=== PATIENT | male | born 1945 | race Caucasian/White ===

== ENCOUNTER 2016-03-16 16:40 | Emergency (ER) | payer MEDICARE, OTHER ==
[2016-03-16] MEDS ORDERED: INSULIN REGULAR HUMAN 100 UNIT/1 ML 10 ML MDV SUBQ STA (17:25)
[2016-03-16] MEDS ORDERED: INSULIN REGULAR HUMAN 100 UNIT/1 ML 10 ML MDV ONE (17:28)
== END 2016-03-16 19:08 | disposition home or self-care (01) ==
DX: E11.65 Type 2 diabetes mellitus with hyperglycemia (principal); Z79.4 Long term (current) use of insulin; R42 Dizziness and giddiness; R41.0 Disorientation, unspecified; D72.829 Elevated white blood cell count, unspecified; I10 Essential (primary) hypertension; Z79.82 Long term (current) use of aspirin
CPT/HCPCS: 36415; 80053; 83690; 85025; 99283; 99284; J1815

== ENCOUNTER 2017-04-20 12:45 | Outpatient (CLI) | payer MEDICARE, OTHER ==
--- NOTE | 2017-04-20 17:45 | CT Report ---
CT BRAIN WITHOUT CONTRAST: 04/20/2017 CLINICAL INDICATION: Memory loss. TECHNIQUE: Axial CT images of the brain were obtained without intravenous contrast. In accordance with CT protocol optimization, one or more of the following dose reduction techniques were utilized for this exam: Automated exposure control, adjustment of mA and/or KV based on patient size, or use of iterative reconstructive technique. No previous CT is available for comparison. FINDINGS: The ventricles and sulci demonstrate moderate symmetric enlargement, compatible with atrophy. The basilar cisterns are patent. There is no evidence of hemorrhage, mass effect, or midline shift. The visualized orbital contents and paranasal sinuses are unremarkable. IMPRESSION: ATROPHY. NO EVIDENCE OF HEMORRHAGE OR MASS EFFECT. TD: 04/20/2017 17:44
== END 2017-04-20 12:46 | disposition home or self-care (01) ==
LOC: DI 12:45
PROVIDERS: ATTEND Internal Medicine
DX: R41.3 Other amnesia (principal); G31.9 Degenerative disease of nervous system, unspecified
CPT/HCPCS: 70450

== ENCOUNTER 2017-07-17 14:44 | Outpatient (CLI) | payer MEDICARE, OTHER ==
--- NOTE | 2017-07-18 12:12 | Ultrasound Report ---
RETROPERITONEAL ULTRASOUND: 07/17/2017 HISTORY: Proteinuria, chronic renal disease. TECHNIQUE: Real-time scanning by the management expert with saved static images reviewed. COMPARISON: No comparisons. FINDINGS: Right kidney: 11.2 x 6.1 x 6.5 cm. Lateral mid pole cyst 2.9 x 2.4 x 2.7 cm. No solid mass, stone, or obstruction. Left kidney: 11.1 x 5.8 x 5.1 cm. Medial superior pole cyst 1.7 x 1.6 x 2 cm. No solid mass, stone, or obstruction. A left ureteral jet is present. The right is not seen. Prevoid bladder volume 530 mL. Postvoid residual volume 162 mL. IMPRESSION: SOLITARY SIMPLE CYST IN EACH KIDNEY. NO RENAL STONES OR OBSTRUCTION. MODERATE POSTVOID RESIDUAL URINARY VOLUME. TD: 07/18/2017 12:08
== END 2017-07-17 14:45 | disposition home or self-care (01) ==
LOC: DI 14:44
PROVIDERS: ATTEND Internal Medicine Nephrology
DX: N18.3 Chronic kidney disease, stage 3 (moderate) (principal); R80.9 Proteinuria, unspecified; Q61.01 Congenital single renal cyst
CPT/HCPCS: 76770

== ENCOUNTER 2017-07-28 08:34 | Outpatient (CLI) | payer MEDICARE, OTHER ==
[2017-07-28 11:41] LABS: CALCIUM 9.2 mg/dL (8.5-10.3)
== END 2017-07-28 08:35 | disposition home or self-care (01) ==
LOC: LAB.F 08:34
PROVIDERS: ATTEND Student in an Organized Health Care Education/Training Program
DX: N05.9 Unspecified nephritic syndrome with unspecified morphologic changes (principal); N18.3 Chronic kidney disease, stage 3 (moderate); D47.2 Monoclonal gammopathy
CPT/HCPCS: 36415; 80048

== ENCOUNTER 2017-07-31 08:00 | Outpatient (CLI) | payer MEDICARE, OTHER ==
[2017-07-31 11:10] LABS: TOTAL PROTEIN 24HR,URINE 1925 mg/24hr (40-150); TOTAL PROTEIN,URINE TIMED 55 mg/dL; TOTAL VOLUME 24HRS,URINE 3500 mL
== END 2017-07-31 08:01 | disposition home or self-care (01) ==
LOC: LAB.R 08:00
PROVIDERS: ATTEND Student in an Organized Health Care Education/Training Program
DX: N05.9 Unspecified nephritic syndrome with unspecified morphologic changes (principal); N18.3 Chronic kidney disease, stage 3 (moderate); D47.2 Monoclonal gammopathy
CPT/HCPCS: 81599; 82570; 84156; 84166; 86335

== ENCOUNTER 2017-08-31 08:45 | Outpatient (CLI) | payer MEDICARE, OTHER ==
[2017-08-31 18:25] LABS: HB2 TOTAL 15.4 g/dL; HEMOGLOBIN A1C 1.09 g/dL; HEMOGLOBIN A1C % 8.6 % (4.6-6.2)
[2017-08-31 18:26] LABS: ALBUMIN 3.9 g/dL (3.2-5.5); ALBUMIN/GLOBULIN RATIO 1.2 (1.0-2.2); BILIRUBIN,TOTAL 0.8 mg/dL (0.2-1.0); CALCIUM 9.2 mg/dL (8.5-10.3); CREATININE 0.9 mg/dL (0.6-1.2); TOTAL PROTEIN 7.1 g/dL (6.7-8.2)
== END 2017-08-31 08:46 | disposition home or self-care (01) ==
LOC: LAB.F 08:45
PROVIDERS: ATTEND Physician Assistant
DX: I12.9 Hypertensive chronic kidney disease with stage 1 through stage 4 chronic kidney disease, or unspecified chronic kidney disease (principal); E11.22 Type 2 diabetes mellitus with diabetic chronic kidney disease; N18.9 Chronic kidney disease, unspecified; E11.65 Type 2 diabetes mellitus with hyperglycemia; Z12.5 Encounter for screening for malignant neoplasm of prostate
CPT/HCPCS: 36415; 80053; 83036; 84443; G0103; 84153

== ENCOUNTER 2017-09-13 14:30 | Outpatient (CLI) | payer MEDICARE, OTHER ==
--- NOTE | 2017-09-14 09:32 | Ultrasound Report ---
Procedure Date: 09/13/2017 Accession Number: [id number] / [id number] Procedure: US - Duplex Ext Veins Bilateral CPT Code: FULL RESULT: EXAM: BILATERAL LOWER EXTREMITY VENOUS ULTRASOUND EXAM DATE: 09/13/2017 03:48 PM. CLINICAL HISTORY: Leg pain, HTN, DM, obesity. COMPARISON: 10/01/2015. TECHNIQUE: Real-time sonographic vascular imaging was performed by the iv technician through the lower extremities utilizing both color-flow and Doppler spectral analysis. Multiple shipping services sales representative static images were saved for review. FINDINGS: Right: Common Femoral Vein (CFV): Normal. CFV-GSV Junction: Normal. Profunda Femoral Vein (PFV): Normal. Femoral Vein (FV) Prox: Normal. Femoral Vein (FV) Mid: Normal. Femoral Vein (FV) Dist: Normal. Popliteal Vein: Normal. Posterior Tibial Veins: Normal. Peroneal Veins: Normal. Left: Common Femoral Vein (CFV): Normal. CFV-GSV Junction: Normal. Profunda Femoral Vein (PFV): Normal. Femoral Vein (FV) Prox: Normal. Femoral Vein (FV) Mid: Normal. Femoral Vein (FV) Dist: Normal. Popliteal Vein: Normal. Posterior Tibial Veins: Normal. Peroneal Veins: Normal. Other: None. IMPRESSION: No evidence for deep venous thrombosis bilaterally. RADIA
--- NOTE | 2017-09-14 14:37 | Ultrasound Report ---
Procedure Date: 09/13/2017 Accession Number: [id number] / [id number] Procedure: US - Duplex Lwr Ext Arterial Bilat CPT Code: FULL RESULT: EXAM: Bilateral Lower Extremity Arterial Doppler Ultrasound EXAM DATE: 09/13/2017 03:47 PM. CLINICAL HISTORY: Leg pain, HTN, DM, obesity. COMPARISON: None. TECHNIQUE: Real-time sonographic vascular imaging was performed by the assurance assistant, utilizing color-flow, Doppler flow, and spectral analysis. Multiple account executive sales representative static images were saved for review. FINDINGS: On the right, all the vessels demonstrate biphasic waveforms without focal areas of spectral broadening or abnormal waveforms or elevated velocities. Grayscale imaging confirms atheromatous calcified plaques throughout the right leg. On the left, decrease velocities are present extending from the left common femoral artery to the ankle. Atheromatous plaques are noted throughout the left leg arterial system. All the waveforms are diffusely abnormal and are monophasic. However, no focal stenosis, dissection or aneurysm is noted in the arterial system of the left leg. Spectral waveform analysis is as follows: Right Leg: APPLICATION INTERNSHIP: PSV 133 cm/sec. Biphasic waveform. PSFA: PSV 131 cm/sec. Biphasic waveform. MSFA: PSV 82 cm/sec. Biphasic waveform. DSFA: PSV 71 cm/sec. Biphasic waveform. PFA: PSV 79 cm/sec. Biphasic waveform. POP: PSV 54 cm/sec. Biphasic waveform. JOSE F: PSV 39 cm/sec. Biphasic waveform. ANIMAL CARE TECHNICIAN: PSV 49 cm/sec. Biphasic waveform. PER: PSV 25 cm/sec. Biphasic waveform. DPA: PSV 41 cm/sec. Biphasic waveform. Left Leg: APPLICATION INTERNSHIP: PSV 34 cm/sec. Monophasic waveform. PSFA: PSV 46 cm/sec. Monophasic waveform. MSFA: PSV 37 cm/sec. Monophasic waveform. DSFA: PSV 20 cm/sec. Monophasic waveform. PFA: PSV 19 cm/sec. Monophasic waveform. POP: PSV 19 cm/sec. Monophasic waveform. JOSE F: PSV 9 cm/sec. Monophasic waveform. ANIMAL CARE TECHNICIAN: PSV 23 cm/sec. Monophasic waveform. PER: PSV 10 cm/sec. Monophasic waveform. DPA: PSV 11 cm/sec. Monophasic waveform. IMPRESSION: 1. All of the vessels of the right leg from the right common femoral artery to the ankle demonstrate biphasic waveforms. No hemodynamically significant focal stenosis, dissection or aneurysm of the right leg arteries is noted. 2. Diffusely abnormal monophasic waveforms throughout the left leg from the left common femoral artery to the ankle with overall decreased velocities. No focal hemodynamically significant stenosis is noted in the imaged vessels. However, the diffusely abnormal waveforms suggest a more central abnormality possibly in the left external iliac artery or common iliac arteries. Findings can be confirmed with CT angiogram with runoff as necessary. RADIA
== END 2017-09-13 14:31 | disposition home or self-care (01) ==
LOC: DI 14:30
PROVIDERS: ATTEND Physician Assistant
DX: R93.6 Abnormal findings on diagnostic imaging of limbs (principal); M79.604 Pain in right leg; I10 Essential (primary) hypertension; E11.9 Type 2 diabetes mellitus without complications
CPT/HCPCS: 93925; 93970

== ENCOUNTER 2017-09-21 10:49 | Outpatient (CLI) | payer MEDICARE, OTHER ==
[2017-09-21] MEDS ORDERED: IOPAMIDOL-300 100 ML VIAL IVP ONE (13:03)
--- NOTE | 2017-09-21 14:25 | CT Report ---
Procedure Date: 09/21/2017 Accession Number: [id number] / [id number] Procedure: CT - Angio Aorta w/Runoff CPT Code: FULL RESULT: EXAM: CT ANGIOGRAM ABDOMEN AND PELVIS, WITH BILATERAL LOWER EXTREMITY ARTERY RUNOFF EXAM DATE: 09/21/2017 11:52 AM CLINICAL HISTORY: LEFT LEG PAIN,ABNORMAL ARTERIAL US,HTN. COMPARISON: None. TECHNIQUE: Routine helical imaging was performed through the abdomen, pelvis and bilateral lower extremities in arterial phase. IV Contrast: ISOVUE 300 125mL. Reconstructions: Coronal, sagittal, and 3D MIP reconstructions were performed. In accordance with CT protocol optimization, one or more of the following dose reduction techniques were utilized for this exam: automated exposure control, adjustment of mA and/or KV based on patient size, or use of iterative reconstructive technique. FINDINGS: Vascular: Severe wall calcifications in the abdominal aorta with no aneurysmal dilatation or dissection. The celiac trunk, SMA and renal arteries appear patent. The ANGELICA is opacified. Continuing on the right, severe stenosis secondary to calcified plaque in the proximal right common iliac artery (series 5, image 1:30). Moderate to severe stenosis in the mid right external iliac artery secondary to calcified plaque. Prominent wall calcification with effacement of the common femoral artery lumen by approximately 50% (series 5, image 212). Prominent wall calcification in the distal superficial femoral artery with approximate 50% stenosis (series 5, image 346). The popliteal artery is patent. The anterior tibial, posterior tibial and peroneal arteries are opacified down to level of the ankle. Continuing on the left, there is occlusion of the left common iliac artery at its origin. There is reconstitution of the proximal left internal iliac artery and distal aspect of the left external iliac artery. The common femoral, superficial femoral and popliteal arteries are patent. The deep posterior tibial arteries opacified down to the level of the ankle. The anterior tibial and peroneal arteries are opacified down to the level of the ankle. The peroneal vein is opacified to the level of the distal calf. Abdomen: Lung bases, abdominal solid organs, unremarkable for arterial phase enhancement. There is a 2.0 x 1.7 cm soft tissue mass extending off of the superior lateral aspect of the proximal stomach (series 13, image 30) and (series 5, image 40). Diverticulosis without diverticulitis. There is a nodular density in the left adrenal gland measuring up to 2.2 x 1.6 cm and 52 Hounsfield units (series 5, image 64). This is indeterminate. There is a second nodular density posterior aspect of the left adrenal gland measuring up to 1.4 x 1.0 cm and 37 Hounsfield units, also indeterminate. There is a nodular density in the right adrenal gland posteriorly measuring 1.1 x 1.0 cm and 50 Hounsfield units. This is indeterminate. Bilateral renal cysts measuring up to 3.3 cm on the right appear simple in nature. No hydronephrosis or renal calculus. Abdominal contents otherwise normal. There is an expansile heterogeneously enhancing mass in the posterior aspect of the spinous process of L2 measuring 3.7 x 2.8 cm (series 9, image 64). Pelvis: Pelvic organs, bowel, and bladder unremarkable for arterial phase enhancement. Pelvic contents otherwise normal. Extremities: Lower extremity bones and soft tissues unremarkable. No significant degenerative changes. IMPRESSION: 1. Severe atherosclerotic disease of the abdominal aorta with no aneurysmal dilatation or dissection.. 2. 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 3. The left posterior tibial artery is opacified down to level of the ankle. The left anterior tibial and peroneal arteries are opacified down to the level of the mid calf. 4. There is an expansile lytic lesion in the spinous process of L2 measuring 3.7 x 2.8 cm. Consider lumbar spine MRI with contrast for further evaluation of this finding as this is concerning for neoplasm. 5. Bilateral indeterminate adrenal lesions, as above. Three-phase renal CT or renal MRI may be of benefit to further characterize these lesions. 6. There is a soft tissue mass extending superior laterally off of the proximal stomach measuring 2.0 x 1.7 cm concerning for neoplasm. Findings discussed immediately with Dr. Morris by phone on 09/21/2017 at 2:21 PM The above findings were discussed with Carin Morris by Dr. Liliana Ruano at 14:24 hrs on 09/21/17.
== END 2017-09-21 10:50 | disposition home or self-care (01) ==
LOC: DI 10:49
PROVIDERS: ATTEND Physician Assistant
DX: M79.605 Pain in left leg (principal); I74.5 Embolism and thrombosis of iliac artery; I70.0 Atherosclerosis of aorta; M51.86 Other intervertebral disc disorders, lumbar region; R19.09 Other intra-abdominal and pelvic swelling, mass and lump; I10 Essential (primary) hypertension; E11.9 Type 2 diabetes mellitus without complications; E78.5 Hyperlipidemia, unspecified
CPT/HCPCS: 75635; Q9967

== ENCOUNTER 2017-11-22 17:38 | Emergency (ER) | payer MEDICARE, OTHER ==
--- NOTE | 2017-11-22 19:37 | ED Physician Documentation ---
History of Present Illness - Stated complaint Stated Complaint: TOO MUCH INSULIN - Chief complaint Chief Complaint: General - History obtained from History obtained from: Patient, Family - History of Present Illness Timing: Today (72-year-old gentleman with mild dementia takes his own insulin, 35 units of Lantus in the morning and the evening. He had forgotten he took it and around 4:00 took a second dose of his evening insulin. He feels fine.) Review of Systems Ten Systems: 10 systems reviewed and negative Constitutional: denies: Fever, Chills Skin: reports: Reviewed and negative PD PAST MEDICAL HISTORY - Past Medical History Cardiovascular: Hypertension, High cholesterol Endocrine/Autoimmune: Type 2 diabetes Musculoskeletal: Chronic back pain - Past Surgical History Past Surgical History: Yes - Present Medications Home Medications: Ambulatory Orders Medication Instructions Recorded Confirmed Aspirin [Aspir-Low] 81 mg PO DAILY 03/16/16 04/26/16 Atorvastatin [Lipitor] 20 mg PO DAILY 03/16/16 04/26/16 Enalapril [Vasotec] 20 mg PO DAILY 03/16/16 04/26/16 Insulin Glargine [Lantus] 30 units SQ BID 03/16/16 04/26/16 Metoprolol Succinate 50 mg PO DAILY 03/16/16 04/26/16 amLODIPine [Norvasc] 10 mg PO DAILY 03/16/16 04/26/16 Ascorbic Acid [Vitamin C] 1,000 mg PO DAILY 04/26/16 04/26/16 Cholecalciferol (Vitamin D3) 1,000 unit PO DAILY 04/26/16 04/26/16 [Vitamin D3] [place]-3/Dha/Epa/Fish Oil [Fish Oil 1 each PO DAILY 04/26/16 04/26/16 1,000 mg Softgel] Triamterene/Hydrochlorothiazid 1 each PO DAILY 04/26/16 04/26/16 [Triamterene-Hctz 75-50 mg Tab] - Allergies Allergies/Adverse Reactions: Allergies Allergy/AdvReac Type Severity Reaction Status Date / Time Penicillins Allergy Unknown Verified 11/22/17 17:46 metformin AdvReac severe Verified 11/22/17 17:46 diarrhea - Social History Does the pt smoke?: No Smoking Status: Former smoker Does the pt drink ETOH?: No Does the pt have substance abuse?: No PD ED PE NORMAL - Vitals Vital signs reviewed: Yes - General General: Alert and oriented X 3, No acute distress - Neuro Neuro: Alert and oriented X 3, Normal speech - Psych Psych: Normal mood, Normal affect Results - Vitals Vitals: Vital Signs - 24 hr 11/22/17 11/22/17 17:40 19:28 Temperature 36.2 C L 36.8 C Heart Rate 105 H 96 Respiratory 20 16 Rate Blood Pressure 159/73 H 159/57 H O2 Saturation 94 95 Oxygen O2 Source Room air - Labs Labs: Laboratory Tests 11/22/17 11/22/17 11/22/17 17:46 18:29 19:25 POC Whole Bld Glucose 176 H 171 H 201 H PD MEDICAL DECISION MAKING - ED course ED course: He was watched for several hours and there is no evidence of hypoglycemia on recurrent checks. - Sepsis Event Vital Signs: Vital Signs - 24 hr 11/22/17 11/22/17 17:40 19:28 Temperature 36.2 C L 36.8 C Heart Rate 105 H 96 Respiratory 20 16 Rate Blood Pressure 159/73 H 159/57 H O2 Saturation 94 95 Oxygen O2 Source Room air Departure - Departure Disposition: 01 Home, Self Care Clinical Impression: Overdose of insulin Qualifiers: Encounter type: initial encounter Injury intent: accidental or unintentional Qualified Code(s): T38.3X1A - Poisoning by insulin and oral hypoglycemic [antidiabetic] drugs, accidental (unintentional), initial encounter Condition: Good Record reviewed to determine appropriate education?: Yes Instructions: ED Overdose Accidental Comments: Try to figure out some sort of systems so that this does not happen again.
[2017-11-22 21:11] VITALS: BP 153/60
== END 2017-11-22 21:11 | disposition home or self-care (01) ==
LOC: ED 17:38
DX: T38.3X1A Poisoning by insulin and oral hypoglycemic [antidiabetic] drugs, accidental (unintentional), initial encounter (principal); F03.90 Unspecified dementia, unspecified severity, without behavioral disturbance, psychotic disturbance, mood disturbance, and anxiety; I10 Essential (primary) hypertension; E11.9 Type 2 diabetes mellitus without complications; Z87.891 Personal history of nicotine dependence; Z79.82 Long term (current) use of aspirin; Z79.4 Long term (current) use of insulin
CPT/HCPCS: 99283

== ENCOUNTER 2017-11-25 08:49 | Outpatient (CLI) | payer MEDICARE, OTHER ==
--- NOTE | 2017-11-26 01:02 | CT Report ---
Reason: DECREASE MEMORY LOSS, VENAL CELL CANCER Procedure Date: 11/25/2017 Accession Number: [id number] / [id number] Procedure: CT - Head W/O CPT Code: FULL RESULT: EXAM: CT HEAD WITHOUT CONTRAST COMPARISON: 04/20/2017. CLINICAL HISTORY: Decreased memory loss, renal cell cancer. TECHNIQUE: Axial CT images were obtained from the foramen magnum to the vertex without contrast In accordance with CT protocol optimization, one or more of the following dose reduction techniques were utilized for this exam: automated exposure control, adjustment of mA and/or KV based on patient size, or use of iterative reconstructive technique. FINDINGS: No intracranial hemorrhage. No masses. Ventricles are prominent, as before. Mastoids are clear. No middle ear effusions. Rightward deviation of the bony nasal septum is noted, clinical correlation with decreased right-sided nasal airflow suggested. Temporomandibular joints are normally located. Zygomatic arches are intact. Hippocampi are atrophic, as before. Clinical correlation with memory difficulty suggest. Bifrontal volume loss is noted. IMPRESSION: No intracranial hemorrhage, masses, or other discrete acute process identified. Hippocampal volume loss is noted, clinical correlation with memory difficulty suggested. Bifrontal atrophy is noted.
== END 2017-11-25 08:50 | disposition home or self-care (01) ==
LOC: DI 08:49
PROVIDERS: ATTEND Physician Assistant
DX: R41.3 Other amnesia (principal); G31.9 Degenerative disease of nervous system, unspecified; C64.9 Malignant neoplasm of unspecified kidney, except renal pelvis
CPT/HCPCS: 70450

== ENCOUNTER 2017-11-28 11:27 | Inpatient (IN) | payer MEDICARE, OTHER ==
[2017-11-28] MEDS ORDERED: SODIUM CHLORIDE 0.9% 1,000 ML IV ONE (12:19)
[2017-11-28 12:42] LABS: BASOPHILS % (AUTO) 0.3 %; EOSINOPHILS # (AUTO) 0.1 10^3/uL (0.0-0.7); EOSINOPHILS % (AUTO) 0.6 %; HGB - HEMOGLOBIN 12.7 g/dL (14.0-18.0); LYMPHOCYTES # (AUTO) 1.2 10^3/uL (1.5-3.5); LYMPHOCYTES % (AUTO) 9.3 %; MEAN CORPUSCULAR HEMOGLOBIN 27.4 pg (27.0-31.0); MEAN CORPUSCULAR HGB CONC 34.7 g/dL (32.0-36.0); MEAN PLATELET VOLUME 7.6 fL (7.4-11.4); MONOCYTES # (AUTO) 0.9 10^3/uL (0.0-1.0); MONOCYTES % (AUTO) 6.6 %; NEUTROPHILS # (AUTO) 10.8 10^3/uL (1.5-6.6); NEUTROPHILS % (AUTO) 83.2 %; PLT - PLATELET COUNT 245 10^3/uL (130-450); RED BLOOD COUNT 4.64 10^6/uL (4.70-6.10); RED CELL DISTRIBUTION WIDTH 14.9 % (12.0-15.0)
[2017-11-28 12:54] LABS: CREATININE 0.9 mg/dL (0.6-1.2)
[2017-11-28 13:34] LABS: CALCIUM 9.3 mg/dL (8.5-10.3)
--- NOTE | 2017-11-28 13:58 | ED Physician Documentation ---
History of Present Illness - Stated complaint Stated Complaint: BOCHY ACHES, HEAD CONGESTION - Chief complaint Chief Complaint: General - Additonal information Additional information: hx from pt, family, PMD 73 male Pmhx DM, HTN, HLD, PVD, dementia recently found to have an L2 lytic lesion and biopsy showed it to be metastatic renal cell carcinoma [facility] over last week or so very agitated, unable to sleep, almost violetn, pulled a door off its hinges and knowcked his down tried xanax but that only made him more agitated and tried vicodin but that made him fall (no injury per ) he has had CTH already due to ongoing SHORE for quite some time (per showed changes c/w dementia not cancer) no reported fever cough NVD does urinate every 2 minutes which is part of the reason he cannot sleep per paperwork Pmhx: HTN T2DM HLD dementia CKD meds : enalapril, VitC, MVI, asa, vit D3, insulin, trimaterene HCTZ, atorvastati, doxazosin, norco All: penicillin an dmetformin Review of Systems Constitutional: denies: Fever Cardiac: denies: Chest pain / pressure Respiratory: denies: Dyspnea, Cough GI: denies: Abdominal Pain, Nausea, Vomiting : reports: Frequency Neurologic: reports: Confused, Altered mental status, Headache. 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 - Past Surgical History Past Surgical History: Yes - Present Medications Home Medications: Ambulatory Orders Medication Instructions Recorded Confirmed Aspirin [Aspir-Low] 81 mg PO DAILY 03/16/16 04/26/16 Atorvastatin [Lipitor] 20 mg PO DAILY 03/16/16 04/26/16 Enalapril [Vasotec] 20 mg PO DAILY 03/16/16 04/26/16 Insulin Glargine [Lantus] 30 units SQ BID 03/16/16 04/26/16 Metoprolol Succinate 50 mg PO DAILY 03/16/16 04/26/16 amLODIPine [Norvasc] 10 mg PO DAILY 03/16/16 04/26/16 Ascorbic Acid [Vitamin C] 1,000 mg PO DAILY 04/26/16 04/26/16 Cholecalciferol (Vitamin D3) 1,000 unit PO DAILY 04/26/16 04/26/16 [Vitamin D3] [place]-3/Dha/Epa/Fish Oil [Fish Oil 1 each PO DAILY 04/26/16 04/26/16 1,000 mg Softgel] Triamterene/Hydrochlorothiazid 1 each PO DAILY 04/26/16 04/26/16 [Triamterene-Hctz 75-50 mg Tab] - Allergies Allergies/Adverse Reactions: Allergies Allergy/AdvReac Type Severity Reaction Status Date / Time Penicillins Allergy Unknown Verified 11/28/17 11:51 metformin AdvReac severe Verified 11/28/17 11:51 diarrhea - Social History Does the pt smoke?: No Smoking Status: Never smoker Does the pt drink ETOH?: No Does the pt have substance abuse?: No - Immunizations Immunizations are current?: Yes Results - Vitals Vitals: Vital Signs - 24 hr 11/28/17 11:47 Temperature 36.2 C L Heart Rate 68 Respiratory 16 Rate Blood Pressure 182/77 H O2 Saturation 99 Oxygen O2 Source Room air - Labs Labs: Laboratory Tests 11/28/17 11/28/17 12:37 12:37 WBC 13.0 H RBC 4.64 L Hgb 12.7 L Hct 36.7 L MCV 79.0 L MCH 27.4 MCHC 34.7 RDW 14.9 Plt Count 245 MPV 7.6 Neut # (Auto) 10.8 H Lymph # (Auto) 1.2 L Cotton # (Auto) 0.9 Eos # (Auto) 0.1 Baso # (Auto) 0.0 Absolute Nucleated RBC 0.00 Nucleated RBC % 0.0 Sodium 114 L* Potassium 4.7 Chloride 80 L* Carbon Dioxide 22 Anion Gap 12.0 BUN 27 H Creatinine 0.9 Estimated GFR (MDRD) 82 L Glucose 161 H Calcium 9.3 PD MEDICAL DECISION MAKING - ED course ED course: profound hyponatremia will need admit spoke to hospitalist at 1400 she will admit pt for further work up and care defer urine na, chest imaging etc to inpt team Departure - Departure Disposition: 66 [facility] DC/Xfer Clinical Impression: Hyponatremia, Mental confusion
[2017-11-28] MEDS ORDERED: ONDANSETRON 4 MG/2 ML VIAL IVP PRN (14:04)
[2017-11-28] MEDS ORDERED: PROCHLORPERAZINE 10 MG/2 ML VIAL IVP PRN (14:04)
[2017-11-28] MEDS ORDERED: ONDANSETRON ODT 4 MG TABLET TL PRN (14:04)
[2017-11-28] MEDS ORDERED: oxyCODONE 5 MG TABLET PO PRN (14:04)
[2017-11-28 15:23] LABS: BILIRUBIN,URINE NEGATIVE (NEGATIVE); GLUCOSE, URINE (UA) NEGATIVE (NEGATIVE); KETONES,URINE (UA) NEGATIVE (NEGATIVE); LEUKOCYTE ESTERASE, URINE NEGATIVE (NEGATIVE); NITRITE,URINE NEGATIVE (NEGATIVE); OCCULT BLOOD,URINE SMALL (NEGATIVE); PROTEIN,URINE 100 mg/dL (NEGATIVE); UROBILINOGEN,URINE 0.2 (NORMAL) E.U./dL (NORMAL)
[2017-11-28 15:26] LABS: CLARITY,URINE CLEAR (CLEAR)
[2017-11-28 15:33] LABS: BACTERIA,URINE None Seen /HPF (None Seen); RBC,URINE 0-5 /HPF (0-5); SQUAMOUS EPITHELIAL CELL,UR NONE SEEN (<= Few)
[2017-11-28] MEDS: HALOPERIDOL 5 MG/ML VIAL IVP PRN ×3 (17:35→23:07)
[2017-11-28] MEDS: SODIUM CHLORIDE 0.9% 1,000 ML IV SCH ×2 (17:35→23:40)
[2017-11-28] MEDS: SODIUM CHLORIDE FLUSH 0.9% 10 ML SYRINGE IVP SCH ×2 (17:35→23:56)
[2017-11-28 18:08] LABS: CALCIUM 8.3 mg/dL (8.5-10.3); CREATININE 0.8 mg/dL (0.6-1.2)
[2017-11-28] MEDS ORDERED: SODIUM CHLORIDE 3% HYPERTONIC 500 ML IV SCH (19:00)
--- NOTE | 2017-11-28 19:55 | HISTORY & PHYSICAL EXAMINATION ---
DATE OF SERVICE: 11/28/2017 Physician: Nohemi Mccoy MD PRIMARY CARE PROVIDER: EVI Gaitan. ADMITTING PROVIDER: Nohemi Mccoy MD. CHIEF COMPLAINT: Agitation and confusion. HISTORY OF PRESENT ILLNESS: The patient is a 72-year-old, white male who has been having more and more agitation, confusion, memory loss that sharply deteriorated after an L2 biopsy on 10/25/2017. He is a morbidly obese gentleman that is followed by his primary care provider for hypertension, hyperlipidemia, diabetes, and reflux disease. He has been having chronic back pain for probably 2 years. In association with the back pain, there has been leg pain. You can see in the EMR where, in September 2015, he was evaluated by Mely Souza. Hip and pelvic films were negative, other than for degenerative joint disease. A venous Doppler was done 10/01/2015, and was negative. With memory loss, he had a April [address] that was also negative. Because of the bitter complaint of left leg pain and inability to ambulate, the differential diagnosis shifted from a degenerative joint disease to a vascular disease because of his comorbidities. He underwent an arteriogram 09/21/2017. With that 09/21/2017 arteriogram, he did definitely have severe atherosclerotic disease of the abdominal aorta with no aneurysm, complete occlusion of the left common iliac artery with reconstitution of the distal left internal iliac and distal external iliac, but what was new was an expansile lytic lesion in the spinous process of L2, measuring 3.7 x 2.8 cm. He had bilateral indeterminate adrenal lesions. He had a soft tissue mass extending superolaterally off the proximal stomach, measuring 2 x 1.7 cm, concerning for neoplasm. Since then, he has gone on to have further evaluation and had an L2 biopsy 10/25/2017. 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 The family states that, since the biopsy, he has been deteriorating with regard to mentation, agitation, and a sense of panic with impending doom. It was getting steadily worse. The was even concerned about memory loss getting worse from the April 2017 evaluation. Over the last 2-3 nights, he has been up and down continuously. He feels like he has got to urinate. He lies down and, 30 seconds later, is getting back up again in an attempt to pee. He has been up and down so much that the family is now exhausted. He is starting to get belligerent and even yanked a door off of its hinges. The and son are with the patient. The patient is alert enough to endorse their answers to my questions. He does have problems with his eyes and gets a regular diabetic check, but he denies any cardiopulmonary problems. He usually does not have shortness of breath, coughing, wheezing. He has had no change in bowel habits. Stool is the same as it has always been with no change in its color. The main change, over the last year, has been memory loss, and in the last month, it has been urgency, frequency, urinary retention, agitation, memory loss. He tells me that, "I just can't describe it. I just feel like something bad's gonna happen," and he gets very, very agitated and scared and just has to sit up. While he tells me that he cannot pee, he does not feel like that it is what is making him try and get up. He has had almost no appetite. He had half a banana today. Over the last few days, he has just nibbled here and there at various food that has been offered to him. He has not had any syncope or seizures. He was brought to the emergency room by his . He is found to have a sodium of 114 with a potassium 4.7, BUN 27, creatinine 0.9. Random glucose 161. White cell count was 13 with hemoglobin 12.7. Platelets 245. An in-and-out straight catheter shows 755 mL of urine in the bladder with proteinuria, small amount of hematuria, but no infection. CT of the head in the emergency room was also negative. He has some nasal septal deviation. The patient does endorse having "a stuffed up head with lots of pressure." The almost is tearful and desperate in her anxiety. She says that there is no way he can undergo therapy for this tumor, not with this level of agitation. He has an appointment with [facility] 12/07/2017. PAST MEDICAL HISTORY 1. Hypertension. 2. Hyperlipidemia. 3. Gastroesophageal reflux disease. 4. Type 2 diabetes mellitus, with complications, not on long-term insulin since 2008, per his previous PCP notes. 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 He is on long-term use of Lantus. He also has proteinuria and chronic kidney disease. Creatinine is 0.9 in January 2009 and is 0.8 today. GFR is 82-94. 5. Morbid obesity. 6. Lipoma of right thigh removed September 2016. ALLERGIES 1. PENICILLIN 2. METFORMIN. SOCIAL HISTORY: He started smoking at the age of 11. He gave it up in 1995 after a 0-xfpo-fac-day habit. He used to drink quite heavily and drank probably two 6 packs a day, but quit in 1979, when he was dating his . She is his first , and they have 1 son together. She was previously , and he has 2 stepdaughters with her. He was born in [place], [place], spent most of his formative years in the [employer], and was also working for [employer], using heat-treated aluminum and steel. He had a lot of environmental exposures because of that and never wore a mask. FAMILY HISTORY: Mom in her 80s of encephalitis of some unknown type. She was bedr[place] in a [place] [facility]. Dad at age 80 of a stroke. He had 1 brother, 1 sister, but both of them immediately after from Rh factor disease 1 son who is overweight, but otherwise healthy. FUNCTIONAL STATUS: Although his leg has hurt him on the left side, he has been ambulatory. Fed himself, dressed himself. Was alert and oriented. He did not use a cane or a walker. He is still ambulatory, but his confusion leaves him unable to be supervised for even a few minutes at a time. REVIEW OF SYSTEMS: Per the and the patient and the son, on general review of systems, he has no fever, no chills, no sweats, no unexpected weight changes in spite of his recent illness. ENT: Retinal hemorrhage, resulted in some loss of vision, but he does not have glaucoma or cataracts. He denies dysphagia or dysarthria. No facial dysesthesias. Mild deafness. PULMONARY: Denies coughing, wheezing, shortness of breath, phlegm production. CARDIAC: Denies chest pain, orthopnea, edema. Denies palpitations or history of irregular heart rate or murmurs. GASTROINTESTINAL: Decreased appetite over the last month. Decreased p.o. intake. No change in bowel habits. Dyspepsia is intermittent and the same as always. GENITOURINARY: Urgency, frequency, decreased stream, retention have all been present. He has had intermittent left flank pain for the last 3 months. It is interesting to note that a retroperitoneal ultrasound from July of this year showed bilateral simple cysts. From July to September, there have been tremendous changes in his anatomy from that simple ultrasound to the aortogram is done in September. MUSCULOSKELETAL: Joints have been the pain of his assistance ever since he retired. He has chronic back pain with left anterior thigh numbness, left sciatic pain in the past. Knees hurt him. Hips hurt him. Neck hurts him. In the last few weeks, chronic unremitting left-sided lumbar back pain has been newly present. SKIN: Denies any rashes, skin discoloration, moles. PSYCHIATRIC: Severe new anxiety. says this is a totally different person since his biopsy 10/25/2017. It is almost as if he is a different man. There is a lot of anxiety, agitation, sharp memory loss. He says he is just really scared. He denies suicidal ideation or hallucinations. ENDOCRINE: Denies heat or cold intolerance. Denies polyuria, polydipsia, polyphagia. CENTRAL NERVOUS SYSTEM: No history of seizures. Memory loss is positive. No history of focal deficits. Left leg has been intermittently painful and occasionally left stronger than the right leg that they felt was from sciatica. Denies peripheral neuropathy. PHYSICAL EXAMINATION GENERAL: He is seen in his room with his son, stepdaughter, and at the bedside. VITAL SIGNS: Temperature is 36.6. Pulse is 95 and regular. Blood pressure 185/72. Respirations 16. Oxygen saturations 97% on room air. BEHAVIOR: He said that he was feeling better than when he was in the emergency room, but as I spent an hour to an hour and a half in the room with him, he began escalating with increasing getting up and down from the bed. He was getting up to go urinate, have no result, lie back down, and 45 seconds to a minute later try and get up again. At some points, he was actually able to sleep, but only sleep for a minute or 2 at a time, before sense of having to urinate would get him up again. He was getting increasingly frustrated as the effort to urinate was getting harder and harder for him. HEAD AND NECK: Unremarkable. APPEARANCE: He is a red-faced, acne, rosacea patient. Balding male, male pattern, with a jose. EENT: Pupils equal, round, and reactive. Sclerae are nonicteric. Mildly diminished oral mucosa integrity with dryness, but pink. NECK: Supple, and he does have bilateral bruits that are soft in both carotids. No goiter. LUNGS: Diminished in breath sounds at the bases. He has a barrel chest, slightly prolonged in exhalation, but no crackles, rhonchi, wheezing. No increased respiratory effort. Even in getting up to go to the bathroom, he was able to do so. By the time he got back in bed, he was wheezing just a bit. No hypoxia. CARDIOVASCULAR: Distant cardiac tones with a regular rate and rhythm. Soft systolic ejection murmur, left lower sternal border, nonradiating. ABDOMEN: Obese, soft, nontender. Normal bowel sounds. No masses palpable. EXTREMITIES: Did not have palpable pulses in the left dorsalis pedis, minimally, minimally palpable in the right dorsalis pedis, however, there was no ischemia. No cyanosis. Trace edema of both ankles. NEUROLOGIC: The patient was oriented to person, place, time. He knew why he was here. Mood was abnormal with increasing agitation, almost anger at his frustration at being unable to pee and sense of fear. No focal deficits were noticed when he tried to get up out of bed and go to the bathroom on his own. I helped him get up and out of bed at least 3 times, his son twice. He has no tremors. No ataxia. LABORATORY DATA: Sodium was 114. Potassium 4.7. Chloride 80. BUN 27. Creatinine 0.9. Random glucose 161. White cell count 13. Hemoglobin 12.7. Hematocrit 36.7. Platelets 245. Urinalysis had proteinuria, small amount of hematuria, but no bacteria. STUDIES: CT of the head was negative. ASSESSMENT AND PLAN 1. Metabolic encephalopathy in the face of a gentleman who has severe, severe hyponatremia, elevated glucose, recent diagnosis of renal cell cancer. Source of encephalopathy appears primarily to be dehydration from poor p.o. intake and the sodium as mentioned. He may also have pain that is driving some of this. Use Haldol and ativan prn to help with agitation. 2. Severe hyponatremia. It is a complex thought process in that this patient has decreased p.o. intake with most likely dehydration, but he also has a malignancy. It is not an adenoma, such as lung cancer, that would be associated with Syndrome of inappropriate antidiuretic hormone secretion (SIADH) but it is possible. He is not on any medications that would do this. His tumors are located in the adrenal region and could he have hypersecretion of antidiuretic hormone (ADH); however, that is usually associated with a reduction in systemic blood pressure and cardiac output. His blood pressure is certainly not low. We will start him on simple 0.9 normal saline and recheck his sodium in 6 hours. 3. Renal cell carcinoma with metastases to lumbar spine. The family is desperate. They feel that he is not going to survive long enough to get treated. They wanted a hospice consult. I offered to speak to [facility] tomorrow morning, to see with the big picture would be, and then relay that information to them and see if that would help make a better decision whether they really wanted to proceed with hospice or seek with some opinion regarding treatment. 4. Pain due to neoplasm. He has been tried on Vicodin, and that did not seem to touch him at all. We will try low-dose Dilaudid while in the hospital. 5. Type 2 diabetes mellitus, with hyperglycemia, with long-term use of insulin. Start Lantus and sliding scale insulin. Diet will be clear liquids at this time. 6. Hypertension. His usual medications are Vasotec and Cardura. We will resume those. 7. Gastroesophageal reflux disease. Protonix p.r.n. 8. DO NOT RESUSCITATE STATUS. says that she has those directives at home, and she will bring them in. Son and daughter both concur that Dad would never want to be kept alive and resuscitated at this point. 9. Deep venous thrombosis prophylaxis will be Lovenox. 10. Benign prostatic hypertrophy with LUTS. With his sleep deprivation and his urinary frequency, will place a garcia and continue his flomax. ATTESTATION: The patient will be admitted for less than 96 hours. TD: 11/28/2017 19:06 [facility]
--- NOTE | 2017-11-28 20:07 | ANESTHESIA PROCEDURE NOTE ---
Anesth Central Line Template - Central Line Central Line Preparation: Consent Obtained, Time out completed, Ultrasound used, Sterile prep and drape Central line location: Right IJ Central line type: Triple lumen Central line aftercare: Chlorhexidine disc placed, Secured, Placement confirmed, No pneumothorax, No complications, Pt tolerated well Other Info/Details: Called to place central line for hypertonic saline infusion per hospitalist. Consent was obtained from patient tho he is oriented to person and place only. No family was available. Right neck was prepped with chlorohexadine. Sterile gown, gloves and mask were utilized. Patient was draped in a sterile fashion and the Right IJ vein was imaged using ultrasound. The vein was accessed with 18G needle and wire advanced with ease. Vein was dilated and a triple lumen catheter advanced. Wire was removed and line was secured with suture. Chlorohexadine disc applied with sterile dressing. Chest xray shows tip in mid third SVC. Patient tolerated procedure well.
--- NOTE | 2017-11-28 20:49 | XRAY Report ---
Reason: central line placement Procedure Date: 11/28/2017 Accession Number: [id number] / [id number] Procedure: XR - Chest for Line Placement CPT Code: FULL RESULT: EXAM: CHEST RADIOGRAPHY EXAM DATE: 11/28/2017 08:38 PM. CLINICAL HISTORY: Central line placement. COMPARISON: None. TECHNIQUE: 1 view. FINDINGS: Lungs/Pleura: Moderate eventration right hemidiaphragm. No focal opacities evident. No pleural effusion. No pneumothorax. Mediastinum: Within exam limitations, the cardiomediastinal contour is normal. Other: Right internal jugular line in place with the tip mid third SVC. IMPRESSION: 1. Right jugular line tip mid third SVC. 2. No acute cardiopulmonary abnormality. RADIA
[2017-11-28] MEDS ORDERED: LORazepam 2 MG/ML VIAL IVP PRN (20:50)
[2017-11-28] MEDS: SODIUM CHLORIDE FLUSH 0.9% 10 ML SYRINGE IVP PRN ×4 (21:02→23:56)
[2017-11-28] MEDS: INSULIN ASPART 300 UNIT/3 ML PEN SUBQ SCH (21:16)
[2017-11-28] MEDS: INSULIN GLARGINE 300 UNIT/3 ML PEN SUBQ SCH (21:16)
[2017-11-28] MEDS: TAMSULOSIN 0.4 MG CAPSULE PO SCH (21:18)
[2017-11-28] MEDS: DOXAZOSIN 4 MG TABLET PO SCH (21:18)
[2017-11-28] MEDS: ENALAPRIL 5 MG TABLET PO SCH (21:18)
[2017-11-28 21:23] LABS: HB2 TOTAL 13.9 g/dL; HEMOGLOBIN A1C 0.99 g/dL; HEMOGLOBIN A1C % 8.7 % (4.6-6.2)
[2017-11-28] MEDS: HYDROmorphone 1 MG/ML CARPUJECT IVP PRN ×2 (21:54→23:57)
[2017-11-28] MEDS: LORazepam 2 MG/ML VIAL IVP PRN (23:07)
[2017-11-29 00:38] LABS: CALCIUM 7.9 mg/dL (8.5-10.3); CREATININE 0.9 mg/dL (0.6-1.2)
[2017-11-29] MEDS ORDERED: HALOPERIDOL 5 MG/ML VIAL IVP SCH (00:40)
[2017-11-29] MEDS: SODIUM CHLORIDE FLUSH 0.9% 10 ML SYRINGE IVP SCH ×4 (00:57→22:31)
[2017-11-29 00:59] LABS: BASOPHILS # (AUTO) 0.1 10^3/uL (0.0-0.1); BASOPHILS % (AUTO) 0.3 %; HGB - HEMOGLOBIN 12.2 g/dL (14.0-18.0); LYMPHOCYTES # (AUTO) 1.3 10^3/uL (1.5-3.5); LYMPHOCYTES % (AUTO) 5.7 %; MEAN CORPUSCULAR HEMOGLOBIN 27.4 pg (27.0-31.0); MEAN CORPUSCULAR HGB CONC 33.8 g/dL (32.0-36.0); MEAN CORPUSCULAR VOLUME 81.1 fL (80.0-94.0); MEAN PLATELET VOLUME 7.5 fL (7.4-11.4); MONOCYTES # (AUTO) 1.9 10^3/uL (0.0-1.0); NEUTROPHILS # (AUTO) 20.2 10^3/uL (1.5-6.6); PLT - PLATELET COUNT 241 10^3/uL (130-450); RED BLOOD COUNT 4.46 10^6/uL (4.70-6.10); RED CELL DISTRIBUTION WIDTH 14.9 % (12.0-15.0); WHITE BLOOD COUNT 23.5 x10^3/uL (4.8-10.8)
[2017-11-29] MEDS: SODIUM CHLORIDE 0.9% 1,000 ML IV SCH ×4 (01:00→10:01)
[2017-11-29] MEDS: SODIUM CHLORIDE FLUSH 0.9% 10 ML SYRINGE IVP PRN ×5 (01:20→23:01)
[2017-11-29] MEDS: LORazepam 2 MG/ML VIAL IVP PRN ×5 (01:20→19:15)
[2017-11-29 01:25] LABS: PLATELET ESTIMATE, MANUAL NORMAL (130-450,000) (NORMAL); RBC MORPHOLOGY (MULTIPLE) NORMAL APPEARANCE (NORMAL)
--- NOTE | 2017-11-29 02:19 | XRAY Report ---
Reason: Hypoxia, shortness of breath and fever Procedure Date: 11/29/2017 Accession Number: [id number] / [id number] Procedure: XR - Chest 1 View X-Ray CPT Code: 64592 FULL RESULT: EXAM: CHEST RADIOGRAPHY EXAM DATE: 11/29/2017 02:03 AM. CLINICAL HISTORY: Hypoxia, shortness of breath and fever. COMPARISON: CHEST FOR LINE PLACEMENT 11/28/2017 8:11 PM. TECHNIQUE: 1 view. FINDINGS: Lungs/Pleura: Small lung volumes with elevated right hemidiaphragm. Possible mild pulmonary vascular congestion. No pleural effusion seen. No pneumothorax. Mediastinum: Within exam limitations, heart appears mildly enlarged. Aortic atherosclerosis. Other: Right internal jugular catheter tip in the mid SVC. IMPRESSION: 1. Small lung volumes with mild cardiomegaly and possible pulmonary vascular congestion. RADIA
[2017-11-29 04:40] LABS: CALCIUM 7.6 mg/dL (8.5-10.3); CREATININE 0.9 mg/dL (0.6-1.2)
[2017-11-29] MEDS: HALOPERIDOL 5 MG/ML VIAL IVP PRN (04:44)
[2017-11-29] MEDS: VANCOMYCIN INJ 1 GM in SODIUM CHLORIDE 0.9% 250 ML IV SCH ×2 (04:45→17:18)
[2017-11-29] MEDS ORDERED: CEFEPIME 1 GM in SODIUM CHLORIDE 0.9% MINIBAG 100 ML IV SCH (05:00)
[2017-11-29] MEDS: metroNIDAZOLE 500 MG/100 ML 500 MG/100 ML BAG IV SCH ×3 (05:58→21:58)
[2017-11-29 07:00] LABS: BILIRUBIN,URINE NEGATIVE (NEGATIVE); GLUCOSE, URINE (UA) NEGATIVE (NEGATIVE); KETONES,URINE (UA) NEGATIVE (NEGATIVE); LEUKOCYTE ESTERASE, URINE TRACE (NEGATIVE); NITRITE,URINE NEGATIVE (NEGATIVE); OCCULT BLOOD,URINE LARGE (NEGATIVE); PROTEIN,URINE >=300 mg/dL (NEGATIVE); UROBILINOGEN,URINE 0.2 (NORMAL) E.U./dL (NORMAL)
[2017-11-29] MEDS ORDERED: CEFEPIME 2 GM in SODIUM CHLORIDE 0.9% MINIBAG 100 ML IV SCH (07:00)
[2017-11-29 07:09] LABS: CLARITY,URINE HAZY (CLEAR)
[2017-11-29 07:10] LABS: BACTERIA,URINE Rare /HPF (None Seen); RBC,URINE TNTC /HPF (0-5); SQUAMOUS EPITHELIAL CELL,UR RARE Squamous (<= Few)
[2017-11-29 07:42] LABS: CREATININE,URINE 64.6 mg/dL; TOTAL PROTEIN,URINE RANDOM 272 mg/dL
--- NOTE | 2017-11-29 07:49 | PROVIDER PROGRESS NOTE ---
Subjective - Prog Note Date Prog Note Date: 11/29/17 - Subjective Pt reports feeling: No change Subjective: Overnight, he continued to be up and down. Agitated. Finally a combination of Haldol and Ativan calmed him down enough to let him sleep for a few hours. I did place a Hahn catheter in an effort to see if that would improve his getting up and down because it was always about urination. While he had brisk urine output, it did not help a sense of agitation. He spiked a temperature last night, and a lactic acid was checked and was 8.2. At the same time sodium had gone to 117 with the hypertonic saline. Lactic acid is gone to 2.4 after blood cultures, and starting of Zosyn and vancomycin. Source of his temperature is unknown. Repeat chest x-ray was negative and urinalysis is clean. He is responded to the addition of antibiotics and temperature is 36 5. He was tachycardic at 105 with a fever. Blood pressure staying stable and he was 187/69 with a fever, and 185/89 this morning. He is dropping his saturations. He was 97% on room air at 1700 yesterday. This morning he is 95% requiring 3 L. Again chest x-ray was negative. He was admitted with a sodium of 114, and it dropped to 110. As such as started hypertonic saline and was able to bring him up to 117. Hypertonic saline was stopped, he is now on normal saline for this morning. Current Medications - Current Medications Current Medications: Active Medications Acetaminophen (Tylenol) 650 mg PO Q4HR PRN PRN Reason: Pain 1 to 4 Doxazosin Mesylate (Cardura) 4 mg PO QPM [facility] Last Admin: 11/28/17 21:18 Dose: 4 mg Enalapril Maleate (Vasotec) 20 mg PO BID [facility] Last Admin: 11/28/17 21:18 Dose: 20 mg Haloperidol (Haldol Inj) 1 mg IVP Q4H PRN PRN Reason: Agitation Last Admin: 11/29/17 04:44 Dose: 1 mg Hydromorphone HCl (Dilaudid Inj Carp) 1 mg IVP Q2HR PRN PRN Reason: Pain 8 to 10 Last Admin: 11/28/17 23:57 Dose: 1 mg Sodium Chloride (Normal Saline 0.9%) 1,000 mls @ 250 mls/hr IV .Q4H [facility] Last Infusion: 11/29/17 07:30 Dose: 125 mls/hr Metronidazole (Flagyl 500 Mg/100 Ml) 500 mg in 100 mls @ 100 mls/hr IV Q8H [facility] Last Infusion: 11/29/17 07:30 Dose: Infused Vancomycin HCl 1 gm/ Sodium (Chloride) 250 mls @ 167 mls/hr IV Q12H [facility] Last Infusion: 11/29/17 06:30 Dose: Infused Cefepime HCl 1 gm/ Sodium (Chloride) 100 mls @ 200 mls/hr IV Q12H [facility] Last Infusion: 11/29/17 05:45 Dose: Infused Sodium Chloride (Normal Saline 0.9%) 1,000 mls @ 125 mls/hr IV .Q8H [facility] Last Admin: 11/29/17 07:35 Dose: Not Given Insulin Aspart (Novolog) 2 - 10 unit SUBQ 0800,1200,1700,2100 [facility]; Protocol Last Admin: 11/28/17 21:16 Dose: 4 unit Insulin Glargine (Lantus Solostar) 25 unit SUBQ QPM [facility] Last Admin: 11/28/17 21:16 Dose: 25 unit Lorazepam (Ativan Inj (Vial)) 2 mg IVP Q2H PRN PRN Reason: Anxiety Last Admin: 11/29/17 01:20 Dose: 2 mg Ondansetron HCl (Zofran Inj) 4 mg IVP Q6HR PRN PRN Reason: Nausea / Vomiting Ondansetron HCl (Zofran Odt) 4 mg TL Q6HR PRN PRN Reason: Nausea / Vomiting Oxycodone HCl (Roxicodone) 5 mg PO Q4HR PRN PRN Reason: Pain 5 to 7 Polyethylene Glycol (Miralax) 17 gm PO DAILY [facility] Prochlorperazine Edisylate (Compazine Inj) 10 mg IVP Q6HR PRN PRN Reason: Nausea / Vomiting Sodium Chloride (Normal Saline Flush 0.9%) 10 ml IVP PRN PRN PRN Reason: NEEDED PER PROVIDER ORDERS Last Admin: 11/29/17 04:44 Dose: 30 ml Sodium Chloride (Normal Saline Flush 0.9%) 10 ml IVP 0100,0900,1700 [facility] Last Admin: 11/29/17 00:57 Dose: 20 ml Tamsulosin HCl (Flomax) 0.4 mg PO DAILY [facility] Last Admin: 11/28/17 21:18 Dose: 0.4 mg Ascorbic Acid [Vitamin C] 1,000 mg PO DAILY 11/28/17 Aspirin Chewable [St Bk Aspirin] 81 mg PO DAILY 11/28/17 Atorvastatin Calcium [Lipitor] 80 mg PO DAILY 11/28/17 Doxazosin [Cardura] 4 mg PO QPM 11/28/17 Enalapril Maleate [Vasotec] 20 mg PO BID 11/28/17 Insulin Glargine [Lantus Solostar] 35 unit SUBQ BID 11/28/17 Triamterene/Hydrochlorothiazid [Maxzide 75 mg-50 mg Tablet] 1 tab PO DAILY 11/28/17 Objective - Vital Signs/Intake & Output Reviewed Vital Signs: Yes Intake & Output: Intake & Output 11/26/17 11/27/17 11/28/17 11/29/17 23:59 23:59 23:59 23:59 Intake Total 8646.883 7695.000 Output Total 650 550 Balance 1276.667 810.000 - Objective General Appearance: positive: Moderate distress, Other (Confused, diaphoretic, morbidly obese middle-aged man who is much worse than when I admitted him yesterday with regards to confusion. He is not able to focus and speak at all today. Yesterday he was able to answer some of my questions.) Eyes Bilateral: positive: PERRL, EOMI ENT: positive: Pharynx nml Neck: positive: No JVD. negative: Stiff neck, Carotid bruit Respiratory: positive: Chest non-tender, Wheezes, Other (Tachypnea, no use of accessory muscles but very agitated) Cardiovascular: positive: Regular rate & rhythm, Tachycardia, Systolic murmur. negative: Gallop/S4, Friction rub Abdomen: positive: Non-tender, No organomegaly, Nml bowel sounds, No distention, Other (Hahn is draining aravind urine. It was blood-tinged yesterday when it went in. Then it became pink frothy urine and now it is just tea colored and tending toward bright orange). negative: Guarding, Rebound Skin: positive: Warm, Diaphoresis, Pallor Extremities: positive: Pedal edema, Other (Periorbital edema is new) Neurologic/Psychiatric: positive: Disoriented to person, Disoriented to place, Disoriented to time, Other (Agitated, nonstop moving. Rolling back and forth in the bed. Moving all extremities. Again, he was much more oriented and conversant yesterday and today not) - Lab Results Fish Bones: 11/29/17 00:50 11/29/17 04:20 Other Labs: Lab Results x24hrs 11/29/17 11/29/17 11/29/17 Range/Units 06:43 06:43 04:20 WBC (4.8-10.8) x10^3/uL RBC (4.70-6.10) 10^6/uL Hgb (14.0-18.0) g/dL Hct (42.0-52.0) % MCV (80.0-94.0) fL MCH (27.0-31.0) pg MCHC (32.0-36.0) g/dL RDW (12.0-15.0) % Plt Count (130-450) 10^3/uL MPV (7.4-11.4) fL Neut # (Auto) (1.5-6.6) 10^3/uL Lymph # (Auto) (1.5-3.5) 10^3/uL Oliver # (Auto) (0.0-1.0) 10^3/uL Eos # (Auto) (0.0-0.7) 10^3/uL Baso # (Auto) (0.0-0.1) 10^3/uL Absolute Nucleated RBC x10^3/uL Nucleated RBC % /100WBC Manual Slide Review Platelet Estimate (NORMAL) RBC Morph Micro Appear (NORMAL) Sodium (135-145) mmol/L Potassium (3.5-5.0) mmol/L Chloride (101-111) mmol/L Carbon Dioxide (21-32) mmol/L Anion Gap (6-13) BUN (6-20) mg/dL Creatinine (0.6-1.2) mg/dL Estimated GFR (MDRD) (>89) Glucose (70-100) mg/dL Glycated Hemoglobin (4.6-6.2) % Estim Average Glucose (70-100) Lactic Acid 2.4 H (0.5-2.2) mmol/L Calcium (8.5-10.3) mg/dL Urine Color YELLOW Urine Clarity HAZY (CLEAR) Urine pH 6.0 (5.0-7.5) PH Ur Specific Riva 1.025 (1.002-1.030) Urine Protein >=300 (NEGATIVE) mg/dL Urine Glucose (UA) NEGATIVE (NEGATIVE) mg/dL Urine Ketones NEGATIVE (NEGATIVE) mg/dL Urine Occult Blood LARGE H (NEGATIVE) Urine Nitrite NEGATIVE (NEGATIVE) Urine Bilirubin NEGATIVE (NEGATIVE) Urine Urobilinogen 0.2 (NORMAL) (NORMAL) E.U./dL Ur Leukocyte Esterase TRACE H (NEGATIVE) Urine RBC TNTC H (0-5) /HPF Urine WBC 4-5 (0-3) /HPF Ur Squamous Epith Cells RARE Squamous (<= Few) Urine Bacteria Rare (None Seen) /HPF Ur Microscopic Review INDICATED Urine Culture Comments U Random Total Protein 272 mg/dL Ur Random Chloride 52 mmol/L Urine Creatinine 64.6 mg/dL Urine Sodium < 12.0 mmol/L Urine Potassium 77.0 mmol/L 11/29/17 11/29/17 11/29/17 Range/Units 04:20 00:50 00:50 WBC 23.5 H (4.8-10.8) x10^3/uL RBC 4.46 L (4.70-6.10) 10^6/uL Hgb 12.2 L (14.0-18.0) g/dL Hct 36.2 L (42.0-52.0) % MCV 81.1 (80.0-94.0) fL MCH 27.4 (27.0-31.0) pg MCHC 33.8 (32.0-36.0) g/dL RDW 14.9 (12.0-15.0) % Plt Count 241 (130-450) 10^3/uL MPV 7.5 (7.4-11.4) fL Neut # (Auto) 20.2 H (1.5-6.6) 10^3/uL Lymph # (Auto) 1.3 L (1.5-3.5) 10^3/uL Oliver # (Auto) 1.9 H (0.0-1.0) 10^3/uL Eos # (Auto) 0.0 (0.0-0.7) 10^3/uL Baso # (Auto) 0.1 (0.0-0.1) 10^3/uL Absolute Nucleated RBC 0.00 x10^3/uL Nucleated RBC % 0.0 /100WBC Manual Slide Review Indicated Platelet Estimate NORMAL (130-450,000) (NORMAL) RBC Morph Micro Appear NORMAL APPEARANCE (NORMAL) Sodium 116 L* (135-145) mmol/L Potassium 4.1 (3.5-5.0) mmol/L Chloride 84 L (101-111) mmol/L Carbon Dioxide 22 (21-32) mmol/L Anion Gap 10.0 (6-13) BUN 24 H (6-20) mg/dL Creatinine 0.9 (0.6-1.2) mg/dL Estimated GFR (MDRD) 82 L (>89) Glucose 148 H (70-100) mg/dL Glycated Hemoglobin (4.6-6.2) % Estim Average Glucose (70-100) Lactic Acid 8.2 H* (0.5-2.2) mmol/L Calcium 7.6 L (8.5-10.3) mg/dL Urine Color Urine Clarity (CLEAR) Urine pH (5.0-7.5) PH Ur Specific Riva (1.002-1.030) Urine Protein (NEGATIVE) mg/dL Urine Glucose (UA) (NEGATIVE) mg/dL Urine Ketones (NEGATIVE) mg/dL Urine Occult Blood (NEGATIVE) Urine Nitrite (NEGATIVE) Urine Bilirubin (NEGATIVE) Urine Urobilinogen (NORMAL) E.U./dL Ur Leukocyte Esterase (NEGATIVE) Urine RBC (0-5) /HPF Urine WBC (0-3) /HPF Ur Squamous Epith Cells (<= Few) Urine Bacteria (None Seen) /HPF Ur Microscopic Review Urine Culture Comments U Random Total Protein mg/dL Ur Random Chloride mmol/L Urine Creatinine mg/dL Urine Sodium mmol/L Urine Potassium mmol/L 11/29/17 11/28/17 11/28/17 Range/Units 00:25 17:51 15:10 WBC (4.8-10.8) x10^3/uL RBC (4.70-6.10) 10^6/uL Hgb (14.0-18.0) g/dL Hct (42.0-52.0) % MCV (80.0-94.0) fL MCH (27.0-31.0) pg MCHC (32.0-36.0) g/dL RDW (12.0-15.0) % Plt Count (130-450) 10^3/uL MPV (7.4-11.4) fL Neut # (Auto) (1.5-6.6) 10^3/uL Lymph # (Auto) (1.5-3.5) 10^3/uL Oliver # (Auto) (0.0-1.0) 10^3/uL Eos # (Auto) (0.0-0.7) 10^3/uL Baso # (Auto) (0.0-0.1) 10^3/uL Absolute Nucleated RBC x10^3/uL Nucleated RBC % /100WBC Manual Slide Review Platelet Estimate (NORMAL) RBC Morph Micro Appear (NORMAL) Sodium 117 L* 110 L* (135-145) mmol/L Potassium 4.1 4.3 (3.5-5.0) mmol/L Chloride 84 L 80 L* (101-111) mmol/L Carbon Dioxide 19 L 20 L (21-32) mmol/L Anion Gap 14.0 H 10.0 (6-13) BUN 23 H 24 H (6-20) mg/dL Creatinine 0.9 0.8 (0.6-1.2) mg/dL Estimated GFR (MDRD) 82 L 94 (>89) Glucose 123 H 201 H (70-100) mg/dL Glycated Hemoglobin (4.6-6.2) % Estim Average Glucose (70-100) Lactic Acid (0.5-2.2) mmol/L Calcium 7.9 L 8.3 L (8.5-10.3) mg/dL Urine Color LT. YELLOW Urine Clarity CLEAR (CLEAR) Urine pH 7.0 (5.0-7.5) PH Ur Specific Riva 1.015 (1.002-1.030) Urine Protein 100 H (NEGATIVE) mg/dL Urine Glucose (UA) NEGATIVE (NEGATIVE) mg/dL Urine Ketones NEGATIVE (NEGATIVE) mg/dL Urine Occult Blood SMALL H (NEGATIVE) Urine Nitrite NEGATIVE (NEGATIVE) Urine Bilirubin NEGATIVE (NEGATIVE) Urine Urobilinogen 0.2 (NORMAL) (NORMAL) E.U./dL Ur Leukocyte Esterase NEGATIVE (NEGATIVE) Urine RBC 0-5 (0-5) /HPF Urine WBC 0-3 (0-3) /HPF Ur Squamous Epith Cells NONE SEEN (<= Few) Urine Bacteria None Seen (None Seen) /HPF Ur Microscopic Review INDICATED Urine Culture Comments NOT INDICATED U Random Total Protein mg/dL Ur Random Chloride mmol/L Urine Creatinine mg/dL Urine Sodium mmol/L Urine Potassium mmol/L 11/28/17 11/28/17 11/28/17 Range/Units 12:37 12:37 12:30 WBC 13.0 H (4.8-10.8) x10^3/uL RBC 4.64 L (4.70-6.10) 10^6/uL Hgb 12.7 L (14.0-18.0) g/dL Hct 36.7 L (42.0-52.0) % MCV 79.0 L (80.0-94.0) fL MCH 27.4 (27.0-31.0) pg MCHC 34.7 (32.0-36.0) g/dL RDW 14.9 (12.0-15.0) % Plt Count 245 (130-450) 10^3/uL MPV 7.6 (7.4-11.4) fL Neut # (Auto) 10.8 H (1.5-6.6) 10^3/uL Lymph # (Auto) 1.2 L (1.5-3.5) 10^3/uL Oliver # (Auto) 0.9 (0.0-1.0) 10^3/uL Eos # (Auto) 0.1 (0.0-0.7) 10^3/uL Baso # (Auto) 0.0 (0.0-0.1) 10^3/uL Absolute Nucleated RBC 0.00 x10^3/uL Nucleated RBC % 0.0 /100WBC Manual Slide Review Platelet Estimate (NORMAL) RBC Morph Micro Appear (NORMAL) Sodium 114 L* (135-145) mmol/L Potassium 4.7 (3.5-5.0) mmol/L Chloride 80 L* (101-111) mmol/L Carbon Dioxide 22 (21-32) mmol/L Anion Gap 12.0 (6-13) BUN 27 H (6-20) mg/dL Creatinine 0.9 (0.6-1.2) mg/dL Estimated GFR (MDRD) 82 L (>89) Glucose 161 H (70-100) mg/dL Glycated Hemoglobin 8.7 H (4.6-6.2) % Estim Average Glucose 203 H (70-100) Lactic Acid (0.5-2.2) mmol/L Calcium 9.3 (8.5-10.3) mg/dL Urine Color Urine Clarity (CLEAR) Urine pH (5.0-7.5) PH Ur Specific Riva (1.002-1.030) Urine Protein (NEGATIVE) mg/dL Urine Glucose (UA) (NEGATIVE) mg/dL Urine Ketones (NEGATIVE) mg/dL Urine Occult Blood (NEGATIVE) Urine Nitrite (NEGATIVE) Urine Bilirubin (NEGATIVE) Urine Urobilinogen (NORMAL) E.U./dL Ur Leukocyte Esterase (NEGATIVE) Urine RBC (0-5) /HPF Urine WBC (0-3) /HPF Ur Squamous Epith Cells (<= Few) Urine Bacteria (None Seen) /HPF Ur Microscopic Review Urine Culture Comments U Random Total Protein mg/dL Ur Random Chloride mmol/L Urine Creatinine mg/dL Urine Sodium mmol/L Urine Potassium mmol/L Assessment/Plan - Problem List (1) Acute respiratory failure with hypoxia Impression: Blood gas with this episode of agitation shows a pH of 7.2, PCO2 54, PO2 very low. He has a lot of hypoxia. Repeat chest x-ray last night was negative. There is an element of wheezing in a patient whose had smoking in the past. So he could be having COPD exacerbation with no known diagnosis of COPD. He is +2377 liters of fluid. This is a patient who was dehydrated to begin with. I do not think this is fluid overload or congestive heart failure. He had empiric antibiotic started last night for fever spike. Plan: I have started DuoNeb, albuterol, and will add steroids. Continue antibiotics, day #2 of Zosyn and vancomycin for unknown source of infection I have ordered a CT pulmonary angiogram, but I fear this gentleman is way too agitated to be able to safely do CT angiogram. The safest thing would be to intubate him, paralyzed him, but he is a DO NOT RESUSCITATE. Will order venous Dopplers as well to see if I can get indirect confirmation of DVT>PE (2) Fever Impression: His urinalysis did not have infection. 2 chest x-ray did not have pneumonia. The only procedure we did to him was putting in a Hahn catheter in a person who probably has benign prostatic hypertrophy. Lactic acidosis was present and quite severe. With fluid resuscitation, IV antibiotics, his lactic acid went from 8.2->2.4 and now 1.3. So we are going in the right direction with regards to infection. Just not with his respiratory status. Qualifiers: Fever type: unspecified Qualified Code(s): R50.9 - Fever, unspecified (3) Acute metabolic encephalopathy Impression: Combination of hyponatremia, pain, and anxiety. It is not improved overnight. (4) Hyponatremia Impression: His sodium is gone from 114 down to 110. Put on hypertonic saline and went up to 117. Hypertonic saline stopped and is at 116 this morning. Urine electrolytes have been ordered and osmolality has not been ordered since is a send out lab for us. I will call nephrology this morning to see if they want me to do anything different. Recheck electrolytes in 6 hours. (5) Metastatic renal cell carcinoma to bone Impression: I have left a message with [facility] with Dr. Quintaan at [phone] and Dilcia his nurse took my name and number for him to call me. This family is desperate to find out what his options may be. If his options are poor and very limited, they would rather take him home with hospice and comfort care. But if they feel like there is a reasonable expectation that he will get a decent amount of time (even though he states he will never do chemotherapy) they are willing to take him to [facility]. (6) Pain due to malignant neoplasm metastatic to bone Impression: On Dilaudid 1 he says his pain is controlled. Mg every 2 hours as needed. He has had 2 doses last night, and none this morning so far. (7) Type 2 diabetes mellitus with hyperglycemia, with long-term current use of insulin Impression: Glucose last night was 190 at 2100. At midnight he was 123. This morning he is 148. He usually takes Lantus 35 units subcu twice daily. Because he is not e ating much, I have only opted to start him on 25 units every afternoon with sliding scale. So far his glucose is controlled, no change in medication at this time. (8) HTN (hypertension) Impression: His blood pressure has been consistently elevated during the stay. While he does carry a diagnosis of hypertension and takes Enalapril in the outpatient setting with hydrochlorothiazide, his elevated blood pressure could be due to pain, or is it a secondary hypertension from the renal tumors. He is on enalapril and Cardura. At this time I will opt not to add a third agent in an effort to avoid orthostatic hypotension. Qualifiers: Hypertension type: essential hypertension Qualified Code(s): I10 - Essential (primary) hypertension
[2017-11-29] MEDS: POLYETHYLENE GLYCOL 3350 17 GM PACKET PO SCH (08:15)
[2017-11-29] MEDS: ENALAPRIL 5 MG TABLET PO SCH ×2 (08:23→20:59)
[2017-11-29] MEDS: INSULIN ASPART 300 UNIT/3 ML PEN SUBQ SCH (08:23)
[2017-11-29] MEDS: TAMSULOSIN 0.4 MG CAPSULE PO SCH (08:23)
[2017-11-29] MEDS: IPRATROPIUM/ALBUTEROL 3 ML NEB INH PRN (10:42)
[2017-11-29] MEDS ORDERED: IOPAMIDOL-300 100 ML VIAL ONE (11:19)
[2017-11-29 11:24] LABS: ABG PH 7.22 (7.35-7.45)
[2017-11-29 11:25] LABS: ABG BASE EXCESS -6.3 mmol/L (-2.0-3.0); ABG HCO3 21.8 mmol/L (22.0-26.0); ABG OXYGEN SATURATION 89 % (94-98); ABG PCO2 55 mmHg (34-45); ABG PO2 64 mmHg (80-100); ABG TCO2 23.5 MMOL/L (21.0-29.0)
[2017-11-29 11:35] LABS: CALCIUM 7.3 mg/dL (8.5-10.3); CREATININE 1.1 mg/dL (0.6-1.2)
[2017-11-29] MEDS ORDERED: SODIUM CHLORIDE 3% HYPERTONIC 500 ML IV SCH (12:00)
[2017-11-29] MEDS: INSULIN REGULAR HUMAN 100 UNIT/1 ML 10 ML MDV SUBQ SCH ×2 (13:17→17:49)
[2017-11-29 14:06] LABS: ABG BASE EXCESS -6.2 mmol/L (-2.0-3.0); ABG HCO3 19.3 mmol/L (22.0-26.0); ABG OXYGEN SATURATION 99 % (94-98); ABG PCO2 38 mmHg (34-45); ABG PH 7.32 (7.35-7.45); ABG PO2 144 mmHg (80-100); ABG TCO2 20.4 MMOL/L (21.0-29.0)
--- NOTE | 2017-11-29 17:14 | Ultrasound Report ---
Reason: new hypoxia, ams hx of renal cell Procedure Date: 11/29/2017 Accession Number: [id number] / [id number] Procedure: US - Duplex Ext Veins Bilateral CPT Code: FULL RESULT: EXAM: BILATERAL LOWER EXTREMITY VENOUS ULTRASOUND EXAM DATE: 11/29/2017 04:20 PM. CLINICAL HISTORY: New hypoxia, ams hx of renal cell. COMPARISON: None. TECHNIQUE: Real-time sonographic vascular imaging was performed by the cruller maker machine through the lower extremities utilizing both color-flow and Doppler spectral analysis. Multiple senior account representative static images were saved for review. FINDINGS: Right: Common Femoral Vein (CFV): Normal. CFV-GSV Junction: Normal. Profunda Femoral Vein (PFV): Normal. Femoral Vein (FV) Prox: Normal. Femoral Vein (FV) Mid: Normal. Femoral Vein (FV) Dist: Normal. Popliteal Vein: Normal. Posterior Tibial Veins: Normal. Peroneal Veins: Normal. Left: Common Femoral Vein (CFV): Normal. CFV-GSV Junction: Normal. Profunda Femoral Vein (PFV): Normal. Femoral Vein (FV) Prox: Normal. Femoral Vein (FV) Mid: Normal. Femoral Vein (FV) Dist: Normal. Popliteal Vein: Normal. Posterior Tibial Veins: Normal. Peroneal Veins: Normal. Other: None. IMPRESSION: No evidence for deep venous thrombosis bilaterally. [facility]IA
[2017-11-29] MEDS ORDERED: CARBOXYMETHYLCELLULOSE OPHTH DROPS EACHEYE PRN (17:25)
--- NOTE | 2017-11-29 17:38 | CT Report ---
Reason: new hypoxia in pat w renal cell ca Procedure Date: 11/29/2017 Accession Number: [id number] / [id number] Procedure: CT - Chest Angio (PE) CPT Code: FULL RESULT: EXAM: CT ANGIOGRAM CHEST EXAM DATE: 11/29/2017 05:00 PM. CLINICAL HISTORY: Renal cell carcinoma. New hypoxia. COMPARISON: None. TECHNIQUE: Routine helical imaging was performed through the chest in the pulmonary arterial phase. IV Contrast: 100 mL [id number]. Reconstructions: Coronal 3-D MIP reconstructions.Sagittal and coronal. In accordance with CT protocol optimization, one or more of the following dose reduction techniques were utilized for this exam: automated exposure control, adjustment of mA and/or KV based on patient size, or use of iterative reconstructive technique. FINDINGS: Pulmonary Arteries: Diagnostic quality: Markedly suboptimal not only due to patient respiratory motion but also patient size and timing of the contrast bolus through the segmental arteries. No filling defects within the main pulmonary arteries. However, lobar and more distal pulmonary arterial vessels cannot be evaluated. RV/LV is within normal limits. There is no interventricular septal bowing. There is no reflux of contrast material in the IVC. Lungs/Pleura: Suspect subsegmental airspace infiltrate apical segment right upper lobe. Tiny bilateral pleural effusions. No pneumothorax. Mediastinum: Mild cardiomegaly without significant pericardial fluid. Grossly, no significant adenopathy. Thoracic Aorta: Unremarkable. Upper Abdomen: Calcified granuloma in the spleen. Nonspecific 2.5 cm lesion off the posterior mid right kidney. Other: None. IMPRESSION: 1. No evidence of pulmonary emboli within the main pulmonary arteries. 2. Study is otherwise nondiagnostic as regards to evaluation for pulmonary emboli. 3. Mild cardiomegaly. 4. Subsegmental infiltrate right lung apex. 5. Tiny bilateral pleural effusions. RADIA
[2017-11-29] MEDS ORDERED: IOPAMIDOL-300 100 ML VIAL IVP ONE (17:42)
[2017-11-29 17:47] LABS: CALCIUM 7.5 mg/dL (8.5-10.3); CREATININE 0.9 mg/dL (0.6-1.2)
[2017-11-29] MEDS ORDERED: ZINC OXIDE 20% OINT 28.35 GM TUBE TOP PRN (20:36)
[2017-11-29] MEDS: CEFEPIME 2 GM in SODIUM CHLORIDE 0.9% MINIBAG 100 ML IV SCH (20:58)
[2017-11-29] MEDS: INSULIN GLARGINE 300 UNIT/3 ML PEN SUBQ SCH (20:58)
[2017-11-29] MEDS: CHLORHEXIDINE GLUCONATE 15 ML UDC PO SCH (20:59)
[2017-11-29] MEDS: DOXAZOSIN 4 MG TABLET PO SCH (20:59)
[2017-11-29] MEDS: MORPHINE 2 MG/ML CARPUJECT IVP PRN (22:32)
[2017-11-29 23:14] LABS: CALCIUM 7.3 mg/dL (8.5-10.3); CREATININE 0.9 mg/dL (0.6-1.2)
[2017-11-30] MEDS: SODIUM CHLORIDE 0.9% 1,000 ML IV SCH ×2 (00:31→08:40)
[2017-11-30] MEDS: INSULIN REGULAR HUMAN 100 UNIT/1 ML 10 ML MDV SUBQ SCH ×4 (00:49→18:17)
[2017-11-30] MEDS: LORazepam 2 MG/ML VIAL IVP PRN ×7 (01:58→18:17)
[2017-11-30] MEDS: SODIUM CHLORIDE FLUSH 0.9% 10 ML SYRINGE IVP SCH ×4 (01:59→20:02)
[2017-11-30] MEDS: MORPHINE 2 MG/ML CARPUJECT IVP PRN ×5 (02:03→20:01)
[2017-11-30] MEDS: SODIUM CHLORIDE FLUSH 0.9% 10 ML SYRINGE IVP PRN ×11 (02:04→17:55)
[2017-11-30] MEDS: VANCOMYCIN INJ 1 GM in SODIUM CHLORIDE 0.9% 250 ML IV SCH (05:04)
[2017-11-30 05:35] LABS: ABG HCO3 21.2 mmol/L (22.0-26.0); ABG PCO2 37 mmHg (34-45); ABG PH 7.37 (7.35-7.45); ABG PO2 97 mmHg (80-100)
[2017-11-30 05:36] LABS: ABG BASE EXCESS -3.6 mmol/L (-2.0-3.0); ABG OXYGEN SATURATION 97 % (94-98); ABG TCO2 22.3 MMOL/L (21.0-29.0); ALLEN TEST POSITIVE
[2017-11-30] MEDS: metroNIDAZOLE 500 MG/100 ML 500 MG/100 ML BAG IV SCH ×2 (05:52→13:20)
[2017-11-30] MEDS: DEXTROSE 50% ABBOJECT 25 GM/50 ML SYRINGE IVP ONE ×2 (06:15→12:18)
[2017-11-30] MEDS: PANTOPRAZOLE 40 MG VIAL IVP SCH (06:27)
[2017-11-30 07:12] LABS: CALCIUM 7.4 mg/dL (8.5-10.3); CREATININE 0.9 mg/dL (0.6-1.2)
[2017-11-30] MEDS: CEFEPIME 2 GM in SODIUM CHLORIDE 0.9% MINIBAG 100 ML IV SCH (07:49)
[2017-11-30] MEDS: IPRATROPIUM/ALBUTEROL 3 ML NEB INH PRN (07:54)
[2017-11-30] MEDS: TAMSULOSIN 0.4 MG CAPSULE PO SCH (09:45)
[2017-11-30] MEDS: CHLORHEXIDINE GLUCONATE 15 ML UDC PO SCH ×2 (09:45→21:12)
[2017-11-30] MEDS: ENALAPRIL 5 MG TABLET PO SCH (09:45)
[2017-11-30] MEDS: POLYETHYLENE GLYCOL 3350 17 GM PACKET PO SCH (09:46)
[2017-11-30] MEDS ORDERED: ACETAMINOPHEN 650 MG SUPP PR PRN (14:16)
[2017-11-30] MEDS ORDERED: MORPHINE SOL 10 MG/0.5 ML SYRINGE SL PRN (14:16)
[2017-11-30] MEDS ORDERED: ATROPINE 1% OPHTH DROPS 2 ML SL PRN (14:16)
--- NOTE | 2017-11-30 14:25 | PROVIDER PROGRESS NOTE ---
Subjective - Prog Note Date Prog Note Date: 11/30/17 Prog Note Time: 14:21 - Subjective Subjective: Overnight he has required quite a bit of Haldol and Ativan to keep him sedated. He is finally sleeping. But he keeps on taking off the mask. and son and daughter have been in several times between yesterday and today and I am finally able to sit down with him this afternoon. Current Medications - Current Medications Current Medications: Active Medications Acetaminophen (Tylenol) 650 mg PO Q4HR PRN PRN Reason: Pain 1 to 4 Acetaminophen (Tylenol) 650 mg WI Q4H PRN PRN Reason: Fever >101 Albuterol () 2.5 mg INH Q2H PRN PRN Reason: Wheezing Albuterol/Ipratropium (Duoneb) 3 ml INH Q4HR PRN PRN Reason: Wheezing Last Admin: 11/30/17 07:54 Dose: 3 ml Atropine Sulfate (Isopto Atropine 1% Ophth Drops) 1 - 4 drops SL Q2H PRN PRN Reason: Excessive secretions Carboxymethylcellulose (Refresh 1% Ophth Drops) 1 drops EACHEYE PRN PRN PRN Reason: Dry Eye Last Admin: 11/29/17 19:01 Dose: 1 drops Chlorhexidine Gluconate (Peridex) 15 ml PO BID DUSTIN Last Admin: 11/30/17 09:45 Dose: 15 ml Haloperidol (Haldol Inj) 1 mg IVP Q4H PRN PRN Reason: Agitation Last Admin: 11/29/17 04:44 Dose: 1 mg Heparin Sodium (Beef Lung) () 30 - 50 unit IVP PRN PRN PRN Reason: Central Line Protocol (<24 hr) Last Admin: 11/30/17 07:08 Dose: 50 unit Hydromorphone HCl (Dilaudid Inj Carp) 1 mg IVP Q2HR PRN PRN Reason: Pain 8 to 10 Last Admin: 11/28/17 23:57 Dose: 1 mg Insulin Human Regular (Novolin R) 2 - 10 unit SUBQ Q6HR DUSTIN; Protocol Last Admin: 11/30/17 12:23 Dose: Not Given Lorazepam (Ativan Inj (Vial)) 2 mg IVP Q2H PRN PRN Reason: Anxiety Last Admin: 11/30/17 12:43 Dose: 2 mg Morphine Sulfate (Morphine (Carpuject)) 2 mg IVP Q2HR PRN PRN Reason: PAIN Last Admin: 11/30/17 13:44 Dose: 2 mg Morphine Sulfate (Roxanol) 10 mg SL Q2HR PRN PRN Reason: PAIN Multi-Ingred Cream/Lotion/Oil/Oint (Lubrifresh Pm Ophth Oint) 1 applic EACHEYE QPM PRN PRN Reason: Dry Eye Multi-Ingredient Ointment (Zinc Oxide) 1 applic TOP PRN PRN PRN Reason: Skin Care Last Admin: 11/30/17 11:32 Dose: 1 applic Ondansetron HCl (Zofran Inj) 4 mg IVP Q6HR PRN PRN Reason: Nausea / Vomiting Ondansetron HCl (Zofran Odt) 4 mg TL Q6HR PRN PRN Reason: Nausea / Vomiting Oxycodone HCl (Roxicodone) 5 mg PO Q4HR PRN PRN Reason: Pain 5 to 7 Pantoprazole Sodium (Protonix) 40 mg IVP QDAC [facility] Last Admin: 11/30/17 06:27 Dose: 40 mg Polyethylene Glycol (Miralax) 17 gm PO DAILY [facility] Last Admin: 11/30/17 09:46 Dose: Not Given Prochlorperazine Edisylate (Compazine Inj) 10 mg IVP Q6HR PRN PRN Reason: Nausea / Vomiting Sodium Chloride (Normal Saline Flush 0.9%) 10 ml IVP PRN PRN PRN Reason: NEEDED PER PROVIDER ORDERS Last Admin: 11/30/17 13:45 Dose: 10 ml Sodium Chloride (Normal Saline Flush 0.9%) 10 ml IVP 0100,0900,1700 [facility] Last Admin: 11/30/17 09:47 Dose: 10 ml Sodium Chloride (Normal Saline Flush 0.9%) 20 ml IVP PRN PRN PRN Reason: After Blood Draw Last Admin: 11/30/17 07:08 Dose: 20 ml Ascorbic Acid [Vitamin C] 1,000 mg PO DAILY 11/28/17 Aspirin Chewable [St Bk Aspirin] 81 mg PO DAILY 11/28/17 Atorvastatin Calcium [Lipitor] 80 mg PO DAILY 11/28/17 Doxazosin [Cardura] 4 mg PO QPM 11/28/17 Enalapril Maleate [Vasotec] 20 mg PO BID 11/28/17 Insulin Glargine [Lantus Solostar] 35 unit SUBQ BID 11/28/17 Triamterene/Hydrochlorothiazid [Maxzide 75 mg-50 mg Tablet] 1 tab PO DAILY 11/28/17 Objective - Vital Signs/Intake & Output Reviewed Vital Signs: Yes Vital Signs: Vital Signs Temp Pulse Pulse Resp BP Pulse Ox 11/30/17 14:00 92 20 172/81 H 100 11/30/17 13:14 115 H 11/30/17 13:00 102 H 20 145/72 H 99 11/30/17 12:00 36.2 C L 110 H 19 158/69 H 99 11/30/17 11:15 94 11/30/17 11:00 93 16 140/54 H 97 Intake & Output: Intake & Output 11/27/17 11/28/17 11/29/17 11/30/17 23:59 23:59 23:59 23:59 Intake Total 9180.716 8898.334 3040.000 Output Total 650 3175 2420 Balance 1276.667 -276.666 620.000 - Objective General Appearance: positive: Moderate distress (Morbidly obese, sedated white male. Is taken quite a bit for us to get him to sleep and stay down with Haldol and Ativan and morphine. When not heavily sedated he fights the Bipap mask, and sweat pores off of him. He is able to squeeze his 's hand, respond to her questions if they are simple yes or no answers.) Eyes Bilateral: positive: PERRL, EOMI ENT: positive: Dry mucous membranes Neck: positive: No JVD. negative: Stiff neck, Carotid bruit Respiratory: positive: Chest non-tender, Wheezes, Other (Tachypnea, fast shallow respiratory rate. It is responded very nicely to the BiPAP mask, but he keeps on taking it off. ABGs continue to show stabilization of PO2 and PCO2.). negative: Rales, Rhonchi Cardiovascular: positive: Regular rate & rhythm, Tachycardia (To the low 100s at times.). negative: Gallop/S4, Friction rub Abdomen: positive: Non-tender, Nml bowel sounds, No distention. negative: Guarding, Rebound Skin: positive: Warm, Diaphoresis Extremities: positive: Full ROM, Pedal edema Neurologic/Psychiatric: positive: Disoriented to person, Disoriented to place, Disoriented to time, Slurred/abnml speech, Other (Right now he is sleeping, but is been a long 48 hours to get him sedated enough to rest comfortably in bed. Nurses have to be at his bedside constantly to prompt him to keep the mask on.). negative: Mood/affect nml - Lab Results Fish Bones: 11/29/17 00:50 11/30/17 05:50 Other Labs: Lab Results x24hrs 11/30/17 11/30/17 11/30/17 Range/Units 12:35 12:10 06:33 Bld Gas Analysis Time Sample Site ABG pH (7.35-7.45) ABG pCO2 (34-45) mmHg ABG pO2 (80-100) mmHg ABG HCO3 (22.0-26.0) mmol/L ABG Total CO2 (21.0-29.0) MMOL/L ABG O2 Saturation (94-98) % ABG Oximetry Spot Check % ABG Base Excess (-2.0-3.0) mmol/L Nacho Test Respiration Rate b/min O2 Delivery Device FiO2 PEEP cmH2O Pressure Support Vent cmH2O EPAP cmH2O IPAP cmH2O Sodium (135-145) mmol/L Potassium (3.5-5.0) mmol/L Chloride (101-111) mmol/L Carbon Dioxide (21-32) mmol/L Anion Gap (6-13) BUN (6-20) mg/dL Creatinine (0.6-1.2) mg/dL Estimated GFR (MDRD) (>89) Glucose (70-100) mg/dL POC Whole Bld Glucose 141 H 52 L* 143 H (70 - 100) mg/dL Calcium (8.5-10.3) mg/dL 11/30/17 11/30/17 11/30/17 Range/Units 06:00 05:50 05:25 Bld Gas Analysis Time 0533 Sample Site RIGHT RADIAL ABG pH 7.37 (7.35-7.45) ABG pCO2 37 (34-45) mmHg ABG pO2 97 (80-100) mmHg ABG HCO3 21.2 L (22.0-26.0) mmol/L ABG Total CO2 22.3 (21.0-29.0) MMOL/L ABG O2 Saturation 97 (94-98) % ABG Oximetry Spot Check 87 % ABG Base Excess -3.6 L (-2.0-3.0) mmol/L Nacho Test POSITIVE Respiration Rate 16 b/min O2 Delivery Device BiPAP FiO2 45.00 PEEP 5 cmH2O Pressure Support Vent 7 cmH2O EPAP 5 cmH2O IPAP 12 cmH2O Sodium 128 L (135-145) mmol/L Potassium 3.7 (3.5-5.0) mmol/L Chloride 99 L (101-111) mmol/L Carbon Dioxide 23 (21-32) mmol/L Anion Gap 6.0 (6-13) BUN 20 (6-20) mg/dL Creatinine 0.9 (0.6-1.2) mg/dL Estimated GFR (MDRD) 82 L (>89) Glucose 59 L* (70-100) mg/dL POC Whole Bld Glucose 60 L* (70 - 100) mg/dL Calcium 7.4 L (8.5-10.3) mg/dL 11/29/17 11/29/17 11/29/17 Range/Units 23:58 23:00 20:45 Bld Gas Analysis Time Sample Site ABG pH (7.35-7.45) ABG pCO2 (34-45) mmHg ABG pO2 (80-100) mmHg ABG HCO3 (22.0-26.0) mmol/L ABG Total CO2 (21.0-29.0) MMOL/L ABG O2 Saturation (94-98) % ABG Oximetry Spot Check % ABG Base Excess (-2.0-3.0) mmol/L Nacho Test Respiration Rate b/min O2 Delivery Device FiO2 PEEP cmH2O Pressure Support Vent cmH2O EPAP cmH2O IPAP cmH2O Sodium 122 L (135-145) mmol/L Potassium 4.2 (3.5-5.0) mmol/L Chloride 96 L (101-111) mmol/L Carbon Dioxide 23 (21-32) mmol/L Anion Gap 3.0 L (6-13) BUN 23 H (6-20) mg/dL Creatinine 0.9 (0.6-1.2) mg/dL Estimated GFR (MDRD) 82 L (>89) Glucose 96 (70-100) mg/dL POC Whole Bld Glucose 94 126 H (70 - 100) mg/dL Calcium 7.3 L (8.5-10.3) mg/dL 11/29/17 11/29/17 Range/Units 17:10 10:59 Bld Gas Analysis Time Sample Site ABG pH (7.35-7.45) ABG pCO2 (34-45) mmHg ABG pO2 (80-100) mmHg ABG HCO3 (22.0-26.0) mmol/L ABG Total CO2 (21.0-29.0) MMOL/L ABG O2 Saturation (94-98) % ABG Oximetry Spot Check % ABG Base Excess (-2.0-3.0) mmol/L Nacho Test Respiration Rate b/min O2 Delivery Device FiO2 PEEP cmH2O Pressure Support Vent cmH2O EPAP cmH2O IPAP cmH2O Sodium 120 L* 115 L* (135-145) mmol/L Potassium 4.1 (3.5-5.0) mmol/L Chloride 92 L (101-111) mmol/L Carbon Dioxide 21 (21-32) mmol/L Anion Gap 7.0 (6-13) BUN 25 H (6-20) mg/dL Creatinine 0.9 (0.6-1.2) mg/dL Estimated GFR (MDRD) 82 L (>89) Glucose 138 H (70-100) mg/dL POC Whole Bld Glucose (70 - 100) mg/dL Calcium 7.5 L (8.5-10.3) mg/dL Assessment/Plan - Problem List (1) Malignant neoplasm metastatic to lumbar spine with unknown primary site Impression: I did speak to the [facility] oncologist 11/29. As far as he knows, and he does emphasize that he has never met this patient and only seen the data, he has a metastatic carcinoma of unknown primary. The biopsy in the L2 region does confirm the tumor with delineates that indicates its renal cell CA. However there is no real large tumor mass in either kidney. Just simple cystic kidney disease. In theory, he emphasizes theory, he has seen patients with metastatic carcinoma of unknown primary and treated as renal cell lineage. They have not done well. They really do not respond well to treatment. Nevertheless, if the patient was interested in doing some type of palliative care, he could offer some immunotherapy. But again, they do not do well. He would also have to have a much better functional standpoint and he does right now in order to start that therapy. I have spoken to the , her daughter (who is the patient's stepdaughter), and discussed with the oncologist said. The patient's said that she felt in her heart that he was not good to be able to do therapy. She knew that before I even told her. He would never want to be living his life this way however brief this torture is. She is tearful. Out right solving. She says this is so hard to do but she does not want her to suffer. He had already told her that he would never do chemotherapy anyway. I have already called for a hospice referral. Nu, workday manager, states that a bed can be available tomorrow in the patient's house. They can open them up to hospice. The is scared. She says that he is so much care, and he was so agitated before he came into the hospital. But she also knows that she does not have the finances or the heart to put him in a fpc facility for respite care. As such, she is taking him home. She will work with her daughter and son to do shift work. Also use friends and neighbors. I have also strongly encouraged her, even though it is a financial burden, to hire private in-home care providers especially at night. Because he is not awake and alert enough or focus enough to eat or drink very much, I do not think he will be with us more than a week or 2. I have stopped all of his IV fluids, stop the BiPAP. Stop labs. I am focused on comfort measures only with Ativan, Haldol, morphine. (2) Acute respiratory failure with hypoxia Impression: Blood gas with this episode of agitation shows a pH of 7.2, PCO2 54, PO2 very low. He has a lot of hypoxia. Repeat chest x-ray last night was negative. There is an element of wheezing in a patient whose had smoking in the past. So he could be having COPD exacerbation with no known diagnosis of COPD. He is positive many liters of fluid. This is a patient who was dehydrated to begin with. I do not think this is fluid overload or congestive heart failure. He had empiric antibiotic started last night for fever spike. Plan: I had started DuoNeb, albuterol, and will add steroids. stop antibiotics, day #3 of Zosyn and vancomycin for unknown source of infection CTA and venous dopplers were neg for PE. (3) Fever Impression: His urinalysis did not have infection. 2 chest x-ray did not have pneumonia. The only procedure we did to him was putting in a Hahn catheter in a person who probably has benign prostatic hypertrophy. Lactic acidosis was present and quite severe. With fluid resuscitation, IV antibiotics, his lactic acid went from 8.2->2.4 and now 1.3. So we are going in the right direction with regards to infection. Just not with his respiratory status. transition to comfort measures. Qualifiers: Fever type: unspecified Qualified Code(s): R50.9 - Fever, unspecified (4) Acute metabolic encephalopathy Impression: Combination of hyponatremia, pain, and anxiety. It did not improve over the last 2 days and required meds. will continue those meds. (5) Hyponatremia Impression: Laboratory Tests 11/28/17 11/28/17 11/29/17 12:37 17:51 00:25 Sodium 114 L* 110 L* 117 L* 11/29/17 11/29/17 11/29/17 04:20 10:59 17:10 Sodium 116 L* 115 L* 120 L* 11/29/17 11/30/17 23:00 05:50 Sodium 122 L 128 L improved but will stop NS. (6) Pain due to malignant neoplasm metastatic to bone Impression: On Dilaudid 1 he says his pain is controlled. Mg every 2 hours as needed. He has had 2 doses last night, and none this morning so far. (7) Type 2 diabetes mellitus with hyperglycemia, with long-term current use of insulin Impression: Glucose 11/28 was 190 at 2100. At midnight he was 123. Yesterday morning he wa s 148. He usually takes Lantus 35 units subcu twice daily. Because he is not eating much, I have only opted to start him on 25 units every afternoon with sliding scale. This morning he was hypoglycemic with the Lantus. I would now be stopping Lantus and Accu-Cheks. (8) HTN (hypertension) Impression: His blood pressure has been consistently elevated during the stay. While he does carry a diagnosis of hypertension and takes Enalapril in the outpatient s etting with hydrochlorothiazide, his elevated blood pressure could be due to pain, or is it a secondary hypertension from the renal tumors. He is on enalapril and Cardura. At this time I will opt not to add a third agent in an effort to avoid orthostatic hypotension.No further medications will be used to control his blood pressure unless he is symptomatic from it. Qualifiers: Hypertension type: essential hypertension Qualified Code(s): I10 - Essential (primary) hypertension
[2017-11-30] MEDS: MINERAL OIL/PETROLAT OPHTH OINT EACHEYE PRN (14:56)
[2017-11-30] MEDS ORDERED: DEXTROSE 50% ABBOJECT 25 GM/50 ML SYRINGE ONE (17:52)
[2017-11-30 19:56] VITALS: BP 171/84
[2017-11-30] MEDS ORDERED: SODIUM CHLORIDE INHALATION 3 ML NEB ONE (20:21)
[2017-11-30] MEDS: ALBUTEROL NEB 2.5 MG/3 ML INH PRN (20:32)
[2017-11-30] MEDS: ACETAMINOPHEN 325 MG TABLET PO PRN (20:45)
[2017-12-01] MEDS: ALBUTEROL NEB 2.5 MG/3 ML INH PRN (00:11)
[2017-12-01] MEDS: ACETAMINOPHEN 325 MG TABLET PO PRN (00:17)
[2017-12-01] MEDS: LORazepam 2 MG/ML VIAL IVP PRN ×5 (00:21→13:05)
[2017-12-01] MEDS: SODIUM CHLORIDE FLUSH 0.9% 10 ML SYRINGE IVP PRN ×6 (00:22→13:05)
[2017-12-01] MEDS: INSULIN REGULAR HUMAN 100 UNIT/1 ML 10 ML MDV SUBQ SCH ×3 (00:23→12:33)
[2017-12-01] MEDS: MORPHINE 2 MG/ML CARPUJECT IVP PRN (03:57)
[2017-12-01] MEDS: PANTOPRAZOLE 40 MG VIAL IVP SCH (06:24)
[2017-12-01] MEDS: CHLORHEXIDINE GLUCONATE 15 ML UDC PO SCH (07:25)
[2017-12-01] MEDS: SODIUM CHLORIDE FLUSH 0.9% 10 ML SYRINGE IVP SCH (08:00)
[2017-12-01] MEDS: POLYETHYLENE GLYCOL 3350 17 GM PACKET PO SCH (08:15)
[2017-12-01] MEDS: MINERAL OIL/PETROLAT OPHTH OINT EACHEYE PRN (08:42)
[2017-12-01] MEDS: IPRATROPIUM/ALBUTEROL 3 ML NEB INH PRN (10:11)
--- NOTE | 2017-12-01 11:29 | Discharge Plan ---
Discharge Plan Disposition: 50 Hospice/Home DC/Xfer No Smoking: If you smoke, Please STOP! Call for help.
--- NOTE | 2017-12-06 16:34 | DISCHARGE SUMMARY ---
Physician: Ashleigh Stone MD DATE OF ADMISSION: 11/28/2017 DATE OF DISCHARGE: 12/01/2017 HISTORY OF PRESENT ILLNESS: This is a 72-year-old, white male, with history of obesity, diabetes, hypertension, back and leg pain that required a workup over the previous several months, including evaluation for vascular disease, DJD, and then biopsy of a lytic lesion of the spine. Imaging had shown a mass in the proximal stomach, minimal abnormality of the kidneys. The biopsy was interpreted as cancer of unknown primary site. The patient had a deteriorating mental status and was brought in now because of agitation, confusion, memory loss, urinary urgency, belligerence (he yanked a door off of it hinges). He was admitted for altered mental status. HOSPITAL COURSE AND DISCHARGE DIAGNOSES 1. Malignant neoplasm with metastasis to the lumbar spine with unknown primary site. The family reported that, since the L2 biopsy in mid-October 2017, he had worsening status. We reached out to [facility], who reviewed his records and offered management for a presumed renal cell carcinoma as the primary; however, the prognosis was expected to be poor. The family decided to begin comfort care. He was seen by Hospice and accepted under their care and was discharged to his home on 12/01/2017. 2. Respiratory failure with hypoxia. The patient developed worsening respiratory status, required BiPAP for oxygenation. He was in the ICU for management. Chest x-ray revealed no consolidation or effusion. A CTA of the chest showed no pulmonary emboli, mild cardiomegaly, an infiltrate in the right lung apex, and tiny bilateral pleural effusions. A venous duplex Doppler showed no evidence of deep vein thrombosis (DVT) bilaterally. The patient's respiratory status had stabilized by the time of discharge. 3. Fever. The patient developed a fever during hospitalization. Blood cultures were done that had no growth. Laboratory values showed a lactic acid level of 8.2; this improved to 2.4 and 1.3 before discharge. He was on empiric antibiotics in the ICU. 4. Acute metabolic encephalopathy. The patient's alertness never recovered. He was discharged with comfort care under Hospice. 5. Hyponatremia. The patient had an admission serum sodium of 114 that dropped further to 110. He was on hypertonic saline iv and then normal saline replacement in the ICU. He had a slow recovery to a sodium of 120 and 122, and it was 128 before discharge. 6. Insulin-dependent diabetes. The patient was on supplemental D5 iv, and sliding scale insulin while here. His admission HbA1c was 8.7. 7. Hypertension. The patient's blood pressure was elevated at admission, at 175-185/50-60. He was managed with IV medications. LABORATORY AND IMAGING: Reviewed and summarized above. CONDITION AT DISCHARGE: Serious. PHYSICAL EXAMINATION AT DISCHARGE VITAL SIGNS: Blood pressure 197/71. Pulse of 104-112, in sinus tachycardia. Afebrile. 45% supplemental oxygen gave him a 99% saturation. NEUROLOGIC: Somnolent. He was arousable to pain and had spontaneous movements. HEENT: Oral mucosa moist. NECK: Without JVD. CHEST: Clear. HEART: Tachycardic. No murmurs. ABDOMEN: Soft. EXTREMITIES: Without edema. CODE STATUS: DNR. FOLLOWUP: He is under Hospice care at his own home. Time required to complete this entire discharge, chart review, dictation: 30 minutes. cc: Carin Morris PA-C TD: 12/06/2017 15:14 MTD
== END 2017-12-01 15:25 | disposition home or self-care (01) | DRG 70 ==
LOC: ED 11:27 → MS2 14:04 → ICU 14:55
PROVIDERS: ADMIT Specialist; ATTEND Internal Medicine
PROC: 02HV33Z Insertion of Infusion Device into Superior Vena Cava, Percutaneous Approach (ICD-10-PCS; principal; 2017-11-28)
DX: G93.41 Metabolic encephalopathy (principal); R41.0 Disorientation, unspecified; R32 Unspecified urinary incontinence; G30.9 Alzheimer's disease, unspecified; F02.81 Dementia in other diseases classified elsewhere, unspecified severity, with behavioral disturbance; J96.01 Acute respiratory failure with hypoxia; E87.1 Hypo-osmolality and hyponatremia; C64.9 Malignant neoplasm of unspecified kidney, except renal pelvis; I12.9 Hypertensive chronic kidney disease with stage 1 through stage 4 chronic kidney disease, or unspecified chronic kidney disease; C79.51 Secondary malignant neoplasm of bone; Z79.82 Long term (current) use of aspirin; Z91.81 History of falling; E87.2 Acidosis; R31.0 Gross hematuria; B99.9 Unspecified infectious disease; I13.10 Hypertensive heart and chronic kidney disease without heart failure, with stage 1 through stage 4 chronic kidney disease, or unspecified chronic kidney disease; E11.22 Type 2 diabetes mellitus with diabetic chronic kidney disease; N18.9 Chronic kidney disease, unspecified; E66.01 Morbid (severe) obesity due to excess calories; G89.3 Neoplasm related pain (acute) (chronic); N40.1 Benign prostatic hyperplasia with lower urinary tract symptoms; R35.0 Frequency of micturition; E86.0 Dehydration; N28.1 Cyst of kidney, acquired; E11.65 Type 2 diabetes mellitus with hyperglycemia; E78.5 Hyperlipidemia, unspecified; K21.9 Gastro-esophageal reflux disease without esophagitis; E11.319 Type 2 diabetes mellitus with unspecified diabetic retinopathy without macular edema; E11.649 Type 2 diabetes mellitus with hypoglycemia without coma; H35.60 Retinal hemorrhage, unspecified eye; F41.9 Anxiety disorder, unspecified; I70.0 Atherosclerosis of aorta; Z51.5 Encounter for palliative care; Z66 Do not resuscitate; Z79.4 Long term (current) use of insulin; Z68.39 Body mass index [BMI] 39.0-39.9, adult; Z87.891 Personal history of nicotine dependence; Z79.899 Other long term (current) drug therapy
CPT/HCPCS: 36415; 36600; 51701; 71045; 71275; 80048; 81001; 81003; 82570; 82803; 83036; 83605; 84133; 84156; 84300; 85025; 87040; 87086; 87150; 93306; 93970; 94640; 94660; 99284

== ENCOUNTER 2017-12-01 15:34 | Outpatient (CLI) | payer MEDICARE, OTHER | END 2017-12-01 15:35 | disposition home or self-care (01) | LOC: EMS 15:34 | PROVIDERS: ATTEND Surgery | DX: R53.83 Other fatigue (principal); Z74.01 Bed confinement status | CPT/HCPCS: A0425; A0428 ==